=== PATIENT | female | born 1940 | race Caucasian/White ===

== ENCOUNTER 2017-04-16 07:45 | Emergency (ER) | payer OTHER ==
[~2017-04-16] VITALS: Ht 154.9 cm; Wt 65.0 kg
[~2017-04-16 07:45] MED LIST: AMBI10TA PO; ATOR40TA PO; BACT800T5 PO; GABA300C3 PO; GLYB2.5T3 PO; LORTA5 PO; OMEP20TA PO; PLAV75TA PO; POTA-267 PO; VITA400C28 PO
[2017-04-16 07:47] VITALS: BP 118/65; PULSE 82; RESP 16; TEMP 97.7; O2SAT 95
[2017-04-16] MEDS ORDERED: GABA300C5 PO (08:05)
[2017-04-16] MEDS ORDERED: GLIM2TAB PO (08:05)
[2017-04-16] MEDS ORDERED: PLAV75TA29 PO (08:05)
[2017-04-16] MEDS ORDERED: AMBI10TA PO (08:05)
[2017-04-16] MEDS ORDERED: ATOR40TA16 PO (08:05)
[2017-04-16] MEDS ORDERED: PRIL20TA2 (08:05)
--- NOTE | 2017-04-16 08:20 | PD ---
HPI Chief Complaint: Fall Time Seen by Provider: 08:12 Travel History International Travel<30 days: No Contact w/Intl Traveler<30days: No Traveled to known affect area: No History of Present Illness HPI 77-year-old female complains of headache, low back pain, right knee pain. Patient states that she has intermittent headache for the past several months. Patient states the headache aching headache frontal headache. Patient denies any visual change. Patient denies any neck pain. Patient denies any chest pain or shortness of breath. Patient denies abdominal pain. Patient states that she fell this morning and injured her low back and right knee. Patient denies any other injury. Patient states the pain localized to low back area and right knee. Patient has history of chronic low back pain. Patient denies any focal weakness or numbness of extremity. PFSH Past Medical History Hx Anticoagulant Therapy: Yes (PLAVIX) Depression: Yes Heart Rhythm Problems: No Cancer: No Cardiac Catheterization: No Cardiovascular Problems: Yes (SMALL AAA) High Cholesterol: Yes Congestive Heart Failure: No Cerebrovascular Accident: Yes (TIA) Diabetes: Yes (TYPE II) Patient Takes Glucophage: Yes Diminished Hearing: No Diverticulitis: Yes Endocrine: No GERD: Yes Genitourinary: No Hepatitis: No Hiatal Hernia: No Hypertension: Yes Immune Disorder: No Musculoskeletal: No Neurologic: No Psychiatric: No Reproductive: No Respiratory: No Immunizations Current: Yes Myocardial Infarction: No Thyroid Disease: No Tetanus Vaccination: > 5 Years Influenza Vaccination: Yes PNEUMOCCOCAL Vaccine (Year): 2 Menopausal: Yes : 4 Para: 4 Past Surgical History AICD: No Appendectomy: Yes (1986) Body Medical Devices: RODES AND PLATES IN BACK Cholecystectomy: Yes Coronary Artery Bypass Graft: No Eye Surgery: Yes (UMBERTO. 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) Reported Meds & Prescriptions Reported Meds & Active Scripts Active Reported Ambien (Zolpidem Tartrate) 10 Mg Tab 10 Mg PO HS PRN Gabapentin 300 Mg Cap 300 Mg PO DAILY Prilosec (Omeprazole Magnesium) 20 Mg Tab Atorvastatin (Atorvastatin Calcium) 40 Mg Tab 40 Mg PO HS Glimepiride 2 Mg Tab 2 Mg PO DAILY Take with breakfast or first main meal Plavix (Clopidogrel Bisulfate) 75 Mg Tab 75 Mg PO DAILY Review of Systems General / Constitutional: No: Fever Eyes: No: Visual changes HENT: Positive: Headaches Cardiovascular: No: Chest Pain or Discomfort Respiratory: No: Shortness of Breath Gastrointestinal: No: Abdominal Pain Genitourinary: No: Dysuria Musculoskeletal: Positive: Pain Skin: No Rash Neurologic: No: Weakness Psychiatric: No: Depression Endocrine: No: Polydipsia Hematologic/Lymphatic: No: Easy Bruising Physical Exam Narrative GENERAL: Well-nourished, well-developed patient. SKIN: Focused skin assessment warm/dry. HEAD: Normocephalic. EYES: No scleral icterus. No injection or drainage. Pupils 2 mm equal reactive. NECK: Supple, trachea midline. No JVD or lymphadenopathy. CARDIOVASCULAR: Regular rate and rhythm without murmurs, gallops, or rubs. RESPIRATORY: Breath sounds equal bilaterally. No accessory muscle use. GASTROINTESTINAL: Abdomen soft, non-tender, nondistended. MUSCULOSKELETAL: No cyanosis, or edema. Small abrasion prepatellar area of the right knee. Mild to moderate tenderness on palpation prepatellar area of the right knee. Full range of motion the knee. Knee joints stable. No effusion noted. Neurologic exam normal. BACK: Moderate tenderness on palpation lumbar area, without obvious deformity. No CVA tenderness. Negative straight leg raising. Data Data Last Documented VS Vital Signs Date Time Temp Pulse Resp B/P Pulse Ox O2 Delivery O2 Flow Rate FiO2 04/16/17 07:47 97.7 82 16 118/[address] Brain W/O Iv Contrast(Rout) (04/16/17 08:17) Ct Lumb Spine W/O Contrast (04/16/17 08:17) Knee, Ltd (1 Or 2vws) (04/16/17 08:17) MDM Medical Decision Making Medical Screen Exam Complete: Yes Emergency Medical Condition: Yes Interpretation(s) Last Impressions Knee X-Ray 04/16/17816 Signed Impressions: Service Date/Time: Sunday, April 16, 2017 08:43 - CONCLUSION: No acute abnormality is identified. Paulino Souza MD Head CT 04/16/17816 Signed Impressions: Service Date/Time: Sunday, April 16, 2017 08:40 - CONCLUSION: No acute abnormality is identified. Paulino Souza MD Differential Diagnosis Differential diagnosis including contusion, sprain, fracture, dislocation. Narrative Course 77-year-old female with right knee to low back pain. Status post fall this morning. History of headache. TD booster given. Diagnosis Primary Impression: Contusion of right knee Qualified Code: S80.01XA - Contusion of right knee, initial encounter Additional Impression: Cephalgia Qualified Code: R51 - Acute nonintractable headache, unspecified headache type Patient Instructions: General Instructions Additional Instructions: Take medication as directed. Follow-up with personal physician and orthopedist if persistent problem. Return if worse. Polysporin ointment with Band-Aid daily. TD booster given today. Med/Other Pt SpecificInfo: Prescription(s) given Scripts Hydrocodone-Acetaminophen ([place])5-325 mg Tab1 Tab PO Q6H PRN (PAIN) #20 TAB Prov:Ramesh Edmonds MD 04/16/17 Disposition: 01 DISCHARGE HOME Condition: Stable Ramesh Edmonds MD Apr 16, 2017 08:20
--- NOTE | 2017-04-16 09:18 | RADRPT ---
EXAM DATE/TIME: 04/16/2017 08:40 [facility] COMPARISON: No previous studies available for comparison. INDICATIONS : Syncope with fall. RADIATION DOSE: 63.50 CTDIvol (mGy) MEDICAL HISTORY : Hypercholesterolemia. Cardiovascular disease TIA SURGICAL HISTORY : Hysterectomy. Cholecystectomy.Lumbar ENCOUNTER: Initial ACUITY: 1 day PAIN SCALE: 0/10 LOCATION: cranial TECHNIQUE: Multiple contiguous axial images were obtained of the head. Using automated exposure control and adj ustment of the mA and/or kV according to patient size, radiation dose was kept as low as reasonably a chievable to obtain optimal diagnostic quality images. DICOM format image data is available electro nically for review and comparison. FINDINGS: CEREBRUM: The ventricles are normal. No evidence of midline shift, mass lesion, hemorrhage or acute infarction . No extra-axial fluid collections are seen. POSTERIOR FOSSA: The cerebellum and brainstem demonstrate no acute finding. The 4th ventricle is midline. The cerebe llopontine angle is unremarkable. EXTRACRANIAL: Visualized sinuses are clear. SKULL: The calvaria is intact. No evidence of skull fracture. CONCLUSION: No acute abnormality is identified. Paulino Souza MD on April 16, 2017 at 9:14 Board Certified Radiologist. This report was verified electronically.
--- NOTE | 2017-04-16 09:22 | RADRPT ---
EXAM DATE/TIME: 04/16/2017 08:43 [facility] COMPARISON: No previous studies available for comparison. INDICATIONS : Right knee abrasion status post fall. MEDICAL HISTORY : Hypertension. Gastroesophageal reflux disease. Diverticulitis. Diabetes. SURGICAL HISTORY : Appendectomy. Cholecystectomy. Hysterectomy. Bowel resection. Rods, lumbar region. ENCOUNTER: Initial ACUITY: 1 day PAIN SCORE: 4/10 LOCATION: Right knee. FINDINGS: 2 views of the right knee demonstrate no fracture or dislocation. No joint effusion is present. There is no significant arthropathy and mineralization is within normal limits. No soft tissue abnormality or radiopaque foreign body is identified. CONCLUSION: No acute abnormality is identified. Paulino Souza MD on April 16, 2017 at 9:20 Board Certified Radiologist. This report was verified electronically.
--- NOTE | 2017-04-16 09:28 | RADRPT ---
EXAM DATE/TIME: 04/16/2017 08:43 [facility] COMPARISON: No previous studies available for comparison. INDICATIONS : Back pain, fall. RADIATION DOSE: 40.01 CTDIvol (mGy) MEDICAL HISTORY : Cardiovascular disease. Hypercholesterolemia. TIA SURGICAL HISTORY : Cholecystectomy. Hysterectomy.Lumbar ENCOUNTER: Initial ACUITY: 1 day PAIN SCALE: 7/10 LOCATION: Bilateral Back. TECHNIQUE: Volumetric scanning of the lumbar spine was performed. Multiplanar reconstructions in the sagittal, coronal and oblique axial planes were performed. Using automated exposure control and adjustment of the mA and/or kV according to patient size, radiation dose was kept as low as reasonably achievable t o obtain optimal diagnostic quality images. DICOM format image data is available electronically for review and comparison. FINDINGS: VERTEBRAE: Normal vertebral body height. No fracture or compression deformity is identified. Spinal hardware is present posteriorly at L3-L5 consisting of bilateral pedicular screws. Hardware causes beam hardening artifact. ALIGNMENT: There is minimal retrolisthesis of L1 on L2 and L2 on L3. T12-L1: There is a mild diffuse disc bulge. No spinal canal stenosis or neural foraminal narrowing is identif ied. Decreased disc height is present. L1-L2: There is decreased disc height with vacuum disc phenomenon and there is a diffuse disc bulge. No spin al canal stenosis is appreciated and no significant neural foraminal narrowing is seen. L2-L3: There is decreased disc height with a diffuse disc bulge and facet and ligamentum flavum hypertrophy. These changes cause at least mild spinal canal stenosis. There is mild left neural foraminal narrowi ng. L3-L4: The there is decreased disc height with vacuum disc phenomenon. A diffuse disc bulge is present. Spin al canal is partially obscured secondary to beam hardening artifact. There is facet hypertrophy. Mild left neural foraminal narrowing is present. L4-L5: Bilateral pedicular screws are present and cause severe beam hardening artifact obscuring the spinal canal. No definite neural foraminal narrowing is seen. There is fusion of the facet joints. L5-S1: There are bilateral pedicular screws causing beam hardening artifact and obscuring the spinal canal. Neural foramina are also not well-visualized. The facet joints appear fused. Visualized surrounding structures demonstrates severe atherosclerotic disease with ectatic abdominal aorta measuring up to 3 cm. CONCLUSION: 1. Degenerative disc disease at multiple levels with mild spinal canal stenosis at L2-L3. Please see above for detailed description of each level. No fracture is identified and no acute lumbar spine abn ormality is seen. 2. Severe atherosclerotic disease with mildly aneurysmal abdominal aorta measuring up to 3 cm. Paulino Souza MD on April 16, 2017 at 9:21 Board Certified Radiologist. This report was verified electronically.
[2017-04-16] MEDS ORDERED: NORC5TAB PO (09:38)
[2017-04-16] MEDS ORDERED: TETANUS/DIPHTHERIA TOXOID ADULT 0.5 ML VIAL IM ONE (09:45)
== END 2017-04-16 10:06 | disposition home or self-care (01) ==
LOC: PHED 07:45
DX: S80.01XA Contusion of right knee, initial encounter (principal); R51 Headache; M54.5 Low back pain; W19.XXXA Unspecified fall, initial encounter; Z23 Encounter for immunization
CPT/HCPCS: 70450; 72131; 73560; 90471; 90714

== ENCOUNTER 2017-05-20 07:44 | Emergency (ER) | payer OTHER ==
[~2017-05-20] VITALS: Ht 154.9 cm; Wt 70.0 kg
[~2017-05-20 07:44] MED LIST changes: -ATOR40TA PO; +ATOR40TA16 PO; -BACT800T5 PO; -GABA300C3 PO; +GABA300C5 PO; +GLIM2TAB PO; -GLYB2.5T3 PO; -LORTA5 PO; +NORC5TAB PO; -OMEP20TA PO; -PLAV75TA PO; +PLAV75TA29 PO; -POTA-267 PO; +PRIL20TA2 PO; -VITA400C28 PO
[2017-05-20 07:50] VITALS: BP 110/62; PULSE 72; RESP 16; TEMP 98.2; O2SAT 97
[2017-05-20] MEDS ORDERED: SODIUM CHLOR 0.9% 1000 ML INJ 1,000 ML IV SCH (08:06)
[2017-05-20 08:15] VITALS: RESP 16; O2SAT 98
[2017-05-20] MEDS ORDERED: ONDANSETRON HCL 4 MG/2 ML VIAL IVP ONE (08:15)
[2017-05-20] MEDS ORDERED: KETOROLAC TROMETHAMINE 30 MG/ML (IVP) VIAL IVP ONE (08:15)
[2017-05-20] MEDS ORDERED: SODIUM CHLORIDE 0.9% FLUSH 10 ML FLUSH IV FLUSH PRN (08:15)
[2017-05-20] MEDS ORDERED: MORPHINE SULFATE 4 MG/ML INJ IV PUSH ONE (08:15)
--- NOTE | 2017-05-20 08:16 | PD ---
HPI Chief Complaint: Back/ Neck Pain or Injury Time Seen by Provider: 08:05 Travel History International Travel<30 days: No Contact w/Intl Traveler<30days: No Traveled to known affect area: No History of Present Illness HPI The patient is a 77-year-old female who presents emergency department for back pain. The patient states she developed back pain yesterday after getting out of bed. The back pain is located lower aspect of her back, radiates down the posterior aspect of her left leg and stops at the lateral aspect of the left knee. She denies weakness or numbness to left lower extremity. The pain is worse with movement, but is still present at rest. The patient does have a history of previous back surgery that was performed in [place]. The patient does complain of mild dysuria, but denies any hematuria, frequency, or urgency. She does note slightly decreased urinary output. The patient does have a remote history of UTI, but denies any history of previous nephrolithiasis. She denies any nausea, vomiting, diarrhea, constipation, or anterior abdominal pain. The patient has a known history of AAA which is being monitored. The patient's primary physician is Dr. Greg Florez. [facility] Past Medical History Hx Anticoagulant Therapy: Yes (PLAVIX) Depression: Yes Heart Rhythm Problems: No Cancer: No Cardiac Catheterization: No Cardiovascular Problems: Yes (SMALL AAA) High Cholesterol: Yes Congestive Heart Failure: No Cerebrovascular Accident: Yes (TIA) Diabetes: Yes (TYPE II) Diminished Hearing: No Diverticulitis: Yes Endocrine: No GERD: Yes Genitourinary: No Hepatitis: No Hiatal Hernia: No Hypertension: Yes Immune Disorder: No Musculoskeletal: No Neurologic: No Psychiatric: No Reproductive: No Respiratory: No Immunizations Current: Yes Myocardial Infarction: No Thyroid Disease: No PNEUMOCCOCAL Vaccine (Year): 2 Menopausal: Yes : 4 Para: 4 Past Surgical History AICD: No Appendectomy: Yes (1986) Body Medical Devices: RODES AND PLATES IN BACK Cholecystectomy: Yes Coronary Artery Bypass Graft: No Eye Surgery: Yes (UMBERTO. 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) Reported Meds & Prescriptions Reported Meds & Active Scripts Active Reported Ambien (Zolpidem Tartrate) 10 Mg Tab 10 Mg PO HS PRN Gabapentin 300 Mg Cap 300 Mg PO DAILY Prilosec (Omeprazole Magnesium) 20 Mg Tab 20 Mg PO DAILY Atorvastatin (Atorvastatin Calcium) 40 Mg Tab 40 Mg PO HS Glimepiride 2 Mg Tab 2 Mg PO DAILY Take with breakfast or first main meal Plavix (Clopidogrel Bisulfate) 75 Mg Tab 75 Mg PO DAILY Review of Systems Except as stated in HPI: all other systems reviewed are Neg General / Constitutional: No: Fever Cardiovascular: No: Chest Pain or Discomfort Respiratory: No: Shortness of Breath Gastrointestinal: No: Nausea, Vomiting, Diarrhea, Abdominal Pain, Constipation Genitourinary: Positive: Dysuria, No: Urgency, Frequency, Hematuria, Flank Pain Musculoskeletal: Positive: Pain (back pain as noted in the history present illness), No: Weakness Neurologic: No: Weakness, Paresthesia, Sensory Disturbance Physical Exam Narrative GENERAL: Awake, alert, very pleasant 77-year-old female who appears her stated age and is in no acute respiratory distress. The patient does appear mild discomfort. SKIN: Focused skin assessment warm/dry. HEAD: Atraumatic. Normocephalic. EYES: No injection or drainage. ENT: No nasal bleeding or discharge. Mucous membranes pink and moist. NECK: Trachea midline. No JVD. CARDIOVASCULAR: Regular rate and rhythm. No murmur appreciated. RESPIRATORY: No accessory muscle use. Clear to auscultation. Breath sounds equal bilaterally. GASTROINTESTINAL: Abdomen soft, non-tender, nondistended. No rebound tenderness. No suprapubic tenderness. Back: Well-healed midline scar. Mild tenderness left sacroiliac. MUSCULOSKELETAL: No obvious deformities. No clubbing. No cyanosis. No edema. Positive dorsalis pulses bilateral. Flexion of the great toe and plantar flexion on the left are 5 out of 5. Extension of the left knee is 4+/5 and flexion of the left knee is 4+/5. Negative straight leg raise on the left. NEUROLOGICAL: Awake and alert. No obvious cranial nerve deficits. Motor grossly within normal limits. Normal speech. Sensation is intact to the medial , lateral, dorsal aspect of the left foot. PSYCHIATRIC: Appropriate mood and affect; insight and judgment normal. Data Data Last Documented VS Vital Signs Date Time Temp Pulse Resp B/P (MAP) Pulse Ox O2 Delivery O2 Flow Rate FiO2 05/20/17 09:12 16 05/20/17 09:11 62 125/57 (79) 96 Room Air 05/20/17 07:50 98.2 Orders Orders Basic Metabolic Panel (Bmp) (05/20/17 08:06) Complete Blood Count With Diff (05/20/17 08:06) Urinalysis - C+S If Indicated (05/20/17 08:06) Ct Abd/Pel W/O Iv Contrast (05/20/17 08:06) Iv Access Insert/Monitor (05/20/17 08:06) Ecg Monitoring (05/20/17 08:06) Oximetry (05/20/17 08:06) Morphine Inj (Morphine Inj) (05/20/17 08:15) Ondansetron Inj (Zofran Inj) (05/20/17 08:15) Sodium Chlor 0.9% 1000 Ml Inj (Ns 1000 M (05/20/17 08:06) Sodium Chloride 0.9% Flush (Ns Flush) (05/20/17 08:15) Ketorolac Inj (Toradol Inj) (05/20/17 08:15) Famotidine Inj (Pepcid Inj) (05/20/17 09:45) Al-Mag Hy-Si 40-40-4 Mg/Ml Liq (Mag-Al P (05/20/17 09:45) Lidocaine 2% Viscous (Xylocaine 2% Visco (05/20/17 09:45) Urine Culture (05/20/17 08:43) Labs Laboratory Tests Test 05/20/17 08:43 05/20/17 09:05 Urine Collection Type CATH Urine Color STRAW Urine Turbidity CLEAR Urine pH 5.5 Urine Specific [place] 1.007 Urine Protein NEG mg/dL Urine Glucose (UA) NEG mg/dL Urine Ketones NEG mg/dL Urine Occult Blood TRACE Urine Nitrite POS Urine Bilirubin NEG Urine Leukocyte Esterase SMALL Urine WBC 0-2 /hpf Urine WBC Clumps RARE Urine Bacteria MOD /hpf Microscopic Urinalysis Comment CULTURE INDICATED White Blood Count 4.8 TH/MM3 Red Blood Count 4.54 MIL/MM3 Hemoglobin 12.8 GM/DL Hematocrit 39.0 % Mean Corpuscular Volume 85.9 FL Mean Corpuscular Hemoglobin 28.2 PG Mean Corpuscular Hemoglobin Concent 32.8 % Red Cell Distribution Width 13.2 % Platelet Count 258 TH/MM3 Mean Platelet Volume 7.1 FL Neutrophils (%) (Auto) 63.9 % Lymphocytes (%) (Auto) 25.0 % Monocytes (%) (Auto) 6.6 % Eosinophils (%) (Auto) 3.8 % Basophils (%) (Auto) 0.7 % Neutrophils # (Auto) 3.1 TH/MM3 Lymphocytes # (Auto) 1.2 TH/MM3 Monocytes # (Auto) 0.3 TH/MM3 Eosinophils # (Auto) 0.2 TH/MM3 Basophils # (Auto) 0.0 TH/MM3 CBC Comment DIFF FINAL Differential Comment Blood Urea Nitrogen 11 MG/DL Creatinine 0.78 MG/DL Random Glucose 147 MG/DL Calcium Level 8.4 MG/DL Sodium Level 141 MEQ/L Potassium Level 4.1 MEQ/L Chloride Level 107 MEQ/L Carbon Dioxide Level 26.7 MEQ/L Anion Gap 7 MEQ/L Estimat Glomerular Filtration Rate 72 ML/MIN [facility] Medical Decision Making Medical Screen Exam Complete: Yes Emergency Medical Condition: Yes Medical Record Reviewed: Yes Interpretation(s) Last Impressions Abdomen/Pelvis CT 05/20/17805 Signed Impressions: Service Date/Time: Saturday, May 20, 2017 08:50 - CONCLUSION: Chronic changes in the patient's spine, colonic diverticuli and otherwise unremarkable. Brittany Rucker MD Laboratory Tests Test 05/20/17 08:43 05/20/17 09:05 Urine Collection Type CATH Urine Color STRAW Urine Turbidity CLEAR Urine pH 5.5 Urine Specific [place] 1.007 Urine Protein NEG mg/dL Urine Glucose (UA) NEG mg/dL Urine Ketones NEG mg/dL Urine Occult Blood TRACE Urine Nitrite POS Urine Bilirubin NEG Urine Leukocyte Esterase SMALL Urine WBC 0-2 /hpf Urine WBC Clumps RARE Urine Bacteria MOD /hpf Microscopic Urinalysis Comment CULTURE INDICATED White Blood Count 4.8 TH/MM3 Red Blood Count 4.54 MIL/MM3 Hemoglobin 12.8 GM/DL Hematocrit 39.0 % Mean Corpuscular Volume 85.9 FL Mean Corpuscular Hemoglobin 28.2 PG Mean Corpuscular Hemoglobin Concent 32.8 % Red Cell Distribution Width 13.2 % Platelet Count 258 TH/MM3 Mean Platelet Volume 7.1 FL Neutrophils (%) (Auto) 63.9 % Lymphocytes (%) (Auto) 25.0 % Monocytes (%) (Auto) 6.6 % Eosinophils (%) (Auto) 3.8 % Basophils (%) (Auto) 0.7 % Neutrophils # (Auto) 3.1 TH/MM3 Lymphocytes # (Auto) 1.2 TH/MM3 Monocytes # (Auto) 0.3 TH/MM3 Eosinophils # (Auto) 0.2 TH/MM3 Basophils # (Auto) 0.0 TH/MM3 CBC Comment DIFF FINAL Differential Comment Blood Urea Nitrogen 11 MG/DL Creatinine 0.78 MG/DL Random Glucose 147 MG/DL Calcium Level 8.4 MG/DL Sodium Level 141 MEQ/L Potassium Level 4.1 MEQ/L Chloride Level 107 MEQ/L Carbon Dioxide Level 26.7 MEQ/L Anion Gap 7 MEQ/L Estimat Glomerular Filtration Rate 72 ML/MIN Differential Diagnosis Differential diagnoses includes sciatica, back pain with radiculopathy, SI joint pain, spinal stenosis, AAA, nephrolithiasis, UTI. Narrative Course IV was established, labs are drawn and sent, and the patient was placed on cardiac telemetry monitoring and continuous pulse oximetry monitoring. UA was sent to lab. The patient was vegetable handler morphine, Toradol, Zofran, and IV fluids. Noncontrast CT of the abdomen and pelvis was ordered. After administration of morphine the patient complained of epigastric discomfort and indigestion. Therefore, the patient was ordered Pepcid, Maalox, and viscous lidocaine. However, she declined the Maalox and viscous lidocaine. The patient 's labs are noted, CBC was unremarkable. Kidney function is within normal limits. UA reveals leukocyte esterase, nitrates, bacteria, therefore, patient will be treated with Bactrim until culture results are resulted. The patient was reevaluated at 9:45 PM, her symptoms have improved. The patient will be treated with anti-inflammatories, muscle relaxers, pain medications, and Bactrim. She is advised return if symptoms worsen or progress. Diagnosis Primary Impression: Back pain with left-sided radiculopathy Additional Impression: UTI (urinary tract infection) Qualified Codes: N39.0 - Urinary tract infection, site not specified Patient Instructions: General Instructions Additional Instructions: Medications as directed. Follow-up with your primary physician. Please provide the patient a copy of her labs at discharge. Return if symptoms worsen or progress. Med/Other Pt SpecificInfo: Prescription(s) given Scripts Sulfamethoxazole-Trimethoprim (Bactrim DS) 800-160 Mg Tab 1 TAB PO BID for Infection, #6 TAB 0 Refills Prov: Sriram Peter MD 05/20/17 Hydrocodone-Acetaminophen ([place]) 5-325 mg Tab 1 TAB PO Q6H Y for PAIN, #15 TAB 0 Refills Prov: Sriram Peter MD 05/20/17 Cyclobenzaprine (Flexeril) 10 Mg Tab 10 MG PO TID for Muscle Spasm, #30 TAB 0 Refills Prov: Sriram Peter MD 05/20/17 Ibuprofen (Ibuprofen) 400 Mg Tab 400 MG PO Q6H Y for PAIN SCALE 1 TO 10, #20 TAB 0 Refills Prov: Sriram Peter MD 05/20/17 Disposition: 01 DISCHARGE HOME Condition: Stable Sriram Peter MD May 20, 2017 08:16
[2017-05-20 09:09] LABS: AUTOMATED NEUTROPHIL # 3.1 TH/MM3 (1.8-7.7); BASOPHIL % 0.7 % (0.0-2.0); EOSINOPHIL # 0.2 TH/MM3 (0-0.4); EOSINOPHIL % 3.8 % (0.0-4.0); HEMO FLAGS DIFF FINAL; LYMPHOCYTE # 1.2 TH/MM3 (1.0-4.8); MEAN CELL VOLUME 85.9 FL (80.0-100.0); MEAN CORPUSCULAR HEMOGLOBIN 28.2 PG (27.0-34.0); MEAN CORPUSCULAR HGB CONC 32.8 % (32.0-36.0); MONO % 6.6 % (0.0-8.0); NEUT % 63.9 % (16.0-70.0); PLATELET COUNT 258 TH/MM3 (150-450); RED BLOOD COUNT 4.54 MIL/MM3 (4.00-5.30); RED CELL DISTRIBUTION WIDTH 13.2 % (11.6-17.2); WHITE BLOOD COUNT 4.8 TH/MM3 (4.0-11.0)
[2017-05-20 09:11] VITALS: BP 125/57; PULSE 62; RESP 16; O2SAT 96
[2017-05-20 09:12] VITALS: RESP 16
--- NOTE | 2017-05-20 09:31 | RADRPT ---
EXAM DATE/TIME: 05/20/2017 08:50 [facility] COMPARISON: CT ABDOMEN & PELVIS W/O CONTRAST, April 25, 2016, 20:49. INDICATIONS : Left low back pain. ORAL CONTRAST: No oral contrast ingested. RADIATION DOSE: 13.95 CTDIvol (mGy) MEDICAL HISTORY : Diabetes mellitus type 2. Diverticulitis. SURGICAL HISTORY : Appendectomy. Cholecystectomy.Hysterectomy.Lumbar fusion. ENCOUNTER: Initial ACUITY: 3 days PAIN SCALE: 8/10 LOCATION: Left low back TECHNIQUE: Volumetric scanning of the abdomen and pelvis was performed. Using automated exposure control and ad justment of the mA and/or kV according to patient size, radiation dose was kept as low as reasonably achievable to obtain optimal diagnostic quality images. DICOM format image data is available electro nically for review and comparison. FINDINGS: CT Abdomen: The liver, spleen, pancreas, kidneys, adrenals are unremarkable. There is no evidence for any stones in the kidneys or the course of the ureters on either side. There is no hydronephrosis.Th ere is no evidence for any appreciable pathological adenopathy, free fluid, or bowel obstruction. Ch ronic vascular calcifications are present involving the aorta, iliac arteries without any significant stenosis or aneurysmal dilatations for technique. CT pelvis: There is no evidence for mass, abscess formation, or any significant adenopathy within the pelvis. There are postsurgical changes in the lower lumbosacral spine. There are diverticuli in the colon without signs of diverticulitis. CONCLUSION: Chronic changes in the patient's spine, colonic diverticuli and otherwise unremarkabl e. K. Dragan Rucker MD on May 20, 2017 at 9:26 Board Certified Radiologist. This report was verified electronically.
[2017-05-20 09:38] LABS: GLUCOSE,URINE NEG (NEG); KETONE, URINE NEG (NEG); NITRITE,URINE POS (NEG); PH, URINE 5.5 (5.0-8.5)
[2017-05-20] MEDS ORDERED: ALUMINUM/MAGNESIUM/SIMETH 30 ML CUP PO ONE (09:45)
[2017-05-20] MEDS ORDERED: LIDOCAINE VISCOUS 2% SOLN 15 ML UDC PO ONE (09:45)
[2017-05-20] MEDS ORDERED: FAMOTIDINE 20 MG/2 ML VIAL IV PUSH ONE (09:45)
[2017-05-20 09:48] LABS: BICARBONATE 26.7 MEQ/L (21.0-32.0)
[2017-05-20 09:51] LABS: BLOOD, URINE TRACE (NEG)
[2017-05-20 09:52] LABS: METHOD OF COLLECTION CATH; URINE COLOR STRAW (YELLW/STRAW); WBC, URINE 0-2 /hpf (0-5)
[2017-05-20 09:53] LABS: BACTERIA, URINE MOD /hpf; COMMENT (UR) CULTURE INDICATED; CULTURE IF INDICATED CULTURE INDICATED
[2017-05-20 09:54] LABS: POTASSIUM 4.1 MEQ/L (3.5-5.1)
[2017-05-20] MEDS ORDERED: BACT800T5 PO (10:01)
[2017-05-20] MEDS ORDERED: NORC5TAB PO (10:01)
[2017-05-20] MEDS ORDERED: IBUP400T20 PO (10:01)
[2017-05-20] MEDS ORDERED: CYCL1TAB29 PO (10:01)
[2017-05-20 10:37] VITALS: BP 138/71
== END 2017-05-20 11:09 | disposition home or self-care (01) ==
LOC: PHED 07:44
DX: M54.5 Low back pain (principal); M54.10 Radiculopathy, site unspecified; N39.0 Urinary tract infection, site not specified; B96.20 Unspecified Escherichia coli [E. coli] as the cause of diseases classified elsewhere; E11.9 Type 2 diabetes mellitus without complications; Z79.84 Long term (current) use of oral hypoglycemic drugs
CPT/HCPCS: 74176; 80048; 81001; 85025; 87077; 87086; 87186; 96361; 96374; 96375; 99285; J1885; J2270; J2405; J7030

== ENCOUNTER 2017-06-08 07:34 | Observation (INO) | payer OTHER ==
[~2017-06-08] VITALS: Ht 165.1 cm; Wt 65.0 kg
[2017-06-08] VITALS (10 sets, daily range): BP systolic 124–179; BP diastolic 60–91; PULSE 79–88; RESP 15–18; TEMP 97.5–97.8; O2SAT 95–99
[~2017-06-08 07:34] MED LIST changes: +BACT800T5 PO; +CYCL1TAB29 PO; +IBUP400T20 PO
[2017-06-08] MEDS ORDERED: SODIUM CHLORIDE 0.9% FLUSH 5 ML FLUSH IV FLUSH PRN ×2 (07:45→09:45)
--- NOTE | 2017-06-08 07:50 | PD ---
HPI Chief Complaint: General Weakness Time Seen by Provider: 07:45 Travel History International Travel<30 days: No Contact w/Intl Traveler<30days: No Traveled to known affect area: No History of Present Illness HPI 77-year-old female with history of diabetes, previous TIA, presents to the ER today brought in by EMS after her daughter called, states that the patient is more weak than usual, disoriented. Apparently, last night had been found half way out of bed, was helped back into bed by daughter, and this morning appears disoriented. On evaluation, patient is disoriented, but states she has left hip pain. However, it is unclear whether she is a reliable historian. She denies falling. Modifying Factors: None Associated Signs & Symptoms: Altered mental status Risk Factors: Elderly, TIA history PFSH Past Medical History Hx Anticoagulant Therapy: Yes (PLAVIX) Arthritis: Yes Depression: Yes Heart Rhythm Problems: No Cancer: No Cardiac Catheterization: No Cardiovascular Problems: Yes (SMALL AAA) High Cholesterol: Yes Congestive Heart Failure: No Cerebrovascular Accident: Yes (TIA) Diabetes: Yes (TYPE II) Diminished Hearing: No Diverticulitis: Yes Endocrine: No GERD: Yes Genitourinary: No Hepatitis: No Hiatal Hernia: No Hypertension: Yes Immune Disorder: No Musculoskeletal: No Neurologic: No Psychiatric: No Reproductive: No Respiratory: No Immunizations Current: Yes Myocardial Infarction: No Thyroid Disease: No PNEUMOCCOCAL Vaccine (Year): 2 Menopausal: Yes : 4 Para: 4 Past Surgical History AICD: No Appendectomy: Yes (1986) Body Medical Devices: RODES AND PLATES IN BACK Cholecystectomy: Yes Coronary Artery Bypass Graft: No Eye Surgery: Yes (UMBERTO. 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) Reported Meds & Prescriptions Reported Meds & Active Scripts Active Reported Potassium Chloride ER (Potassium Chloride) 10 Meq Cap 10 Meq PO DAILY Simvastatin 80 Mg Tab 80 Mg PO DAILY Glimepiride 1 Mg Tab 1 Mg PO DAILY Take with breakfast or first main meal Gabapentin 300 Mg Cap 300 Mg PO BID Ambien (Zolpidem Tartrate) 10 Mg Tab 10 Mg PO HS PRN Prilosec (Omeprazole Magnesium) 20 Mg Tab 20 Mg PO DAILY Plavix (Clopidogrel Bisulfate) 75 Mg Tab 75 Mg PO DAILY Review of Systems ROS Limitations: Altered Mental Status Physical Exam Narrative GENERAL: Well-developed elderly white female patient who appears in mild distress, awake, slurred speech, disoriented. SKIN: Focused skin assessment warm/dry. HEAD: Atraumatic. Normocephalic. EYES: Pupils equal and round. No scleral icterus. No injection or drainage. ENT: No nasal bleeding or discharge. Mucous membranes pink and moist. NECK: Trachea midline. No JVD. CARDIOVASCULAR: Regular rate and rhythm. No murmur appreciated. RESPIRATORY: No accessory muscle use. Clear to auscultation. Breath sounds equal bilaterally. GASTROINTESTINAL: Abdomen soft, non-tender, nondistended. Hepatic and splenic margins not palpable. Pelvis: Stable, mildly tender palpation in the left hip. MUSCULOSKELETAL: No obvious deformities. No clubbing. No cyanosis. No edema. NEUROLOGICAL: Awake and lethargic. No obvious cranial nerve deficits. Motor grossly within normal limits. Slurred speech. PSYCHIATRIC: Disoriented and lethargic; insight and judgment poor. Data Data Last Documented VS Vital Signs Date Time Temp Pulse Resp B/P (MAP) Pulse Ox O2 Delivery O2 Flow Rate FiO2 06/08/17 07:51 (86) Room Air 06/08/17 07:48 97.5 82 15 99 Orders Orders Electrocardiogram (06/08/17 07:45) Complete Blood Count With Diff (06/08/17 07:45) Comprehensive Metabolic Panel (06/08/17 07:45) Prothrombin Time / Inr (Pt) (06/08/17 07:45) Act Partial Throm Time (Ptt) (06/08/17 07:45) Troponin I (06/08/17 07:45) Thyroid Stimulating Hormone (06/08/17 07:45) Urinalysis - C+S If Indicated (06/08/17 07:45) Lactic Acid Sepsis Protocol (06/08/17 07:45) Blood Culture (06/08/17 07:45) Chest, Single Ap (06/08/17 07:45) Ct Brain W/O Iv Contrast(Rout) (06/08/17 07:45) Blood Glucose (06/08/17 07:45) Ecg Monitoring (06/08/17 07:45) Iv Access Insert/Monitor (06/08/17 07:45) Cath For Specimen (06/08/17 07:45) Oximetry (06/08/17 07:45) Sodium Chloride 0.9% Flush (Ns Flush) (06/08/17 07:45) Alcohol (Ethanol) (06/08/17 07:45) Hip, Uni(Ap&Lat) W Ap Pelvis (06/08/17 07:50) Urinary Catheter Insert/Apply (06/08/17 08:16) Urine Culture (06/08/17 08:15) Aspirin (Aspirin) (06/08/17 09:15) Piperacil-Tazo 4.5 Gm Premix (Zosyn 4.5 (06/08/17 09:10) Sodium Chlor 0.9% 1000 Ml Inj (Ns 1000 M (06/08/17 09:15) Labs Laboratory Tests Test 06/08/17 07:10 06/08/17 08:15 White Blood Count 4.3 TH/MM3 Red Blood Count 4.48 MIL/MM3 Hemoglobin 12.7 GM/DL Hematocrit 38.5 % Mean Corpuscular Volume 85.9 FL Mean Corpuscular Hemoglobin 28.4 PG Mean Corpuscular Hemoglobin Concent 33.1 % Red Cell Distribution Width 14.0 % Platelet Count 250 TH/MM3 Mean Platelet Volume 6.9 FL Neutrophils (%) (Auto) 61.8 % Lymphocytes (%) (Auto) 25.4 % Monocytes (%) (Auto) 8.6 % Eosinophils (%) (Auto) 3.4 % Basophils (%) (Auto) 0.8 % Neutrophils # (Auto) 2.7 TH/MM3 Lymphocytes # (Auto) 1.1 TH/MM3 Monocytes # (Auto) 0.4 TH/MM3 Eosinophils # (Auto) 0.1 TH/MM3 Basophils # (Auto) 0.0 TH/MM3 CBC Comment DIFF FINAL Differential Comment Prothrombin Time 10.3 SEC Prothromb Time International Ratio 0.9 RATIO Activated Partial Thromboplast Time 24.5 SEC Blood Urea Nitrogen 16 MG/DL Creatinine 0.74 MG/DL Random Glucose 124 MG/DL Total Protein 6.9 GM/DL Albumin 4.0 GM/DL Calcium Level 8.5 MG/DL Alkaline Phosphatase 91 U/L Aspartate Amino Transf (AST/SGOT) 12 U/L Alanine Aminotransferase (ALT/SGPT) 18 U/L Total Bilirubin 0.4 MG/DL Sodium Level 138 MEQ/L Potassium Level 4.2 MEQ/L Chloride Level 104 MEQ/L Carbon Dioxide Level 27.1 MEQ/L Anion Gap 7 MEQ/L Estimat Glomerular Filtration Rate 77 ML/MIN Lactic Acid Level 1.5 mmol/L Troponin I LESS THAN 0.02 NG/ML Thyroid Stimulating Hormone 3rd Gen 2.690 uIU/ML Ethyl Alcohol Level LESS THAN 3 MG/DL Urine Color YELLOW Urine Turbidity CLEAR Urine pH 5.0 Urine Specific Sutton 1.017 Urine Protein NEG mg/dL Urine Glucose (UA) NEG mg/dL Urine Ketones NEG mg/dL Urine Occult Blood NEG Urine Nitrite POS Urine Bilirubin NEG Urine Urobilinogen LESS THAN 2.0 MG/DL Urine Leukocyte Esterase MOD Urine RBC 1 /hpf Urine WBC 7 /hpf Urine WBC Clumps RARE Urine Squamous Epithelial Cells <1 /hpf Urine Bacteria MANY /hpf Microscopic Urinalysis Comment CATH-CULTURE IND MDM Medical Decision Making Medical Screen Exam Complete: Yes Emergency Medical Condition: Yes Medical Record Reviewed: Yes Interpretation(s) Laboratory Tests Test 06/08/17 07:10 06/08/17 08:15 Mean Platelet Volume 6.9 FL (7.0-11.0) Monocytes (%) (Auto) 8.6 % (0.0-8.0) Random Glucose 124 MG/DL (74-106) Aspartate Amino Transf (AST/SGOT) 12 U/L (15-37) Estimat Glomerular Filtration Rate 77 ML/MIN (>89) Troponin I LESS THAN 0.02 NG/ML Urine Nitrite POS (NEG) Urine Leukocyte Esterase MOD (NEG) Urine WBC 7 /hpf (0-5) Urine WBC Clumps RARE (NONE) Urine Bacteria MANY /hpf (NONE) Last 24 hours Impressions Hip and Pelvis X-Ray 06/08/17 0750 Signed Impressions: Service Date/Time: Thursday, June 08, 2017 08:34 - CONCLUSION: 1. No acute fracture or dislocation. Saeed Ness MD Head CT 06/08/1745 Signed Impressions: Service Date/Time: Thursday, June 08, 2017 08:31 - CONCLUSION: 1. No acute intracranial abnormality. Saeed Ness MD Chest X-Ray 06/08/1745 Signed Impressions: Service Date/Time: Thursday, June 08, 2017 07:59 - CONCLUSION: 1. Mild left basilar airspace disease, likely atelectasis. Saeed Ness MD Differential Diagnosis Altered mental status: Metabolic issues versus medication side effects versus TIA versus other acute intracranial processes versus sepsis Narrative Course CAT scan did not show any signs of acute processes. Lab work shows a UTI which may be causing some of her symptoms. Family is concerned because they state that they think Flexeril and some of the pain medications given to her may be causing symptoms to be worse. At this point, aspirin and IV antibiotics were given after cultures were done. My plan would be to admit the patient as an observation for further treatment. Case was discussed with Dr. Farrell for admission. Diagnosis Primary Impression: UTI (urinary tract infection) Additional Impression: Altered mental status Admitting Information Admitting Physician Requests: Admit Renata Bedolla MD Jun 08, 2017 07:50
[2017-06-08 08:28] LABS: AUTOMATED NEUTROPHIL # 2.7 TH/MM3 (1.8-7.7); BASOPHIL % 0.8 % (0.0-2.0); EOSINOPHIL # 0.1 TH/MM3 (0-0.4); EOSINOPHIL % 3.4 % (0.0-4.0); HEMATOCRIT 38.5 % (35.0-46.0); HEMO FLAGS DIFF FINAL; LYMPH % 25.4 % (9.0-44.0); LYMPHOCYTE # 1.1 TH/MM3 (1.0-4.8); MEAN CELL VOLUME 85.9 FL (80.0-100.0); MEAN CORPUSCULAR HEMOGLOBIN 28.4 PG (27.0-34.0); MEAN CORPUSCULAR HGB CONC 33.1 % (32.0-36.0); MONO % 8.6 % (0.0-8.0); NEUT % 61.8 % (16.0-70.0); PLATELET COUNT 250 TH/MM3 (150-450); RED BLOOD COUNT 4.48 MIL/MM3 (4.00-5.30); WHITE BLOOD COUNT 4.3 TH/MM3 (4.0-11.0)
[2017-06-08 08:34] LABS: APTT (PATIENT) 24.5 SEC (24.3-30.1); INTERNATIONAL NORMALIZED RATIO 0.9 RATIO; PROTHROMBIN TIME - PATIENT 10.3 SEC (9.8-11.6)
[2017-06-08 08:36] LABS: ALT (GPT) 18 U/L (10-53); ANION GAP 7 MEQ/L (5-15); AST (GOT) 12 U/L (15-37); BICARBONATE 27.1 MEQ/L (21.0-32.0); BLOOD UREA NITROGEN 16 MG/DL (7-18); CHLORIDE 104 MEQ/L (98-107); GLOMERULAR FILTRATION RATE 77 ML/MIN (>89); POTASSIUM 4.2 MEQ/L (3.5-5.1); SODIUM (NA) 138 MEQ/L (136-145)
--- NOTE | 2017-06-08 08:36 | RADRPT ---
EXAM DATE/TIME: 06/08/2017 07:59 [facility] COMPARISON: CHEST SINGLE AP, January 31, 2016, 10:44. INDICATIONS : Syncope, shortness of breath, fall. MEDICAL HISTORY : None. SURGICAL HISTORY : None. ENCOUNTER: Initial ACUITY: 1 day PAIN SCORE: 0/10 LOCATION: Left chest FINDINGS: Mild left basilar airspace disease. Cardiomediastinal contours are within normal limits. Bony thorax is intact. CONCLUSION: 1. Mild left basilar airspace disease, likely atelectasis. Saeed Ness MD on June 08, 2017 at 8:34 Board Certified Radiologist. This report was verified electronically.
[2017-06-08 08:42] LABS: ALCOHOL LESS THAN 3 MG/DL (0-5)
[2017-06-08 08:44] LABS: BACTERIA, URINE MANY /hpf; BLOOD, URINE NEG (NEG); COMMENT (UR) CATH-CULTURE IND; CULTURE IF INDICATED CATH CULTURE IND; GLUCOSE,URINE NEG (NEG); KETONE, URINE NEG (NEG); NITRITE,URINE POS (NEG); SQUAMOUS EPITHELIAL CELL URINE <1 /hpf (0-5); URINE COLOR YELLOW (YELLW/STRAW)
--- NOTE | 2017-06-08 08:45 | RADRPT ---
EXAM DATE/TIME: 06/08/2017 08:31 [facility] COMPARISON: CT BRAIN W/O CONTRAST, April 16, 2017, 8:40. INDICATIONS : Altered mental status. RADIATION DOSE: 30.60 CTDIvol (mGy) MEDICAL HISTORY : Diabetes mellitus type 2. Cerebrovascular disease. SURGICAL HISTORY : Appendectomy. Cholecystectomy.Hysterectomy. ENCOUNTER: Initial ACUITY: 1 day PAIN SCALE: 0/10 LOCATION: cranial TECHNIQUE: Multiple contiguous axial images were obtained of the head. Using automated exposure control and adj ustment of the mA and/or kV according to patient size, radiation dose was kept as low as reasonably a chievable to obtain optimal diagnostic quality images. DICOM format image data is available electro nically for review and comparison. FINDINGS: CEREBRUM: Mild diffuse cerebral volume loss. The ventricles are normal for age. No evidence of midline shift, mass lesion, hemorrhage or acute infarction. No extra-axial fluid collections are seen. POSTERIOR FOSSA: The cerebellum and brainstem are intact. The 4th ventricle is midline. The cerebellopontine angle i s unremarkable. EXTRACRANIAL: The visualized portion of the orbits is intact. Mild mucoperiosteal thickening in the right sphenoid sinus. SKULL: The calvaria is intact. No evidence of skull fracture. CONCLUSION: 1. No acute intracranial abnormality. Saeed Ness MD on June 08, 2017 at 8:42 Board Certified Radiologist. This report was verified electronically.
[2017-06-08 08:46] LABS: ALKALINE PHOSPHATASE 91 U/L (45-117); TOTAL BILIRUBIN ADULT 0.4 MG/DL (0.2-1.0)
[2017-06-08] MEDS ORDERED: GABA300C5 PO (08:46)
[2017-06-08] MEDS ORDERED: POTA10CA PO (08:46)
[2017-06-08] MEDS ORDERED: GLIM1TAB PO (08:46)
[2017-06-08] MEDS ORDERED: SIMV80TA PO (08:46)
--- NOTE | 2017-06-08 08:53 | RADRPT ---
EXAM DATE/TIME: 06/08/2017 08:34 [facility] COMPARISON: No previous studies available for comparison. INDICATIONS : Left hip pain after falling last night. MEDICAL HISTORY : Diabetes mellitus type 2. Diverticulitis. SURGICAL HISTORY : Appendectomy. Cholecystectomy.Hysterectomy.Lumbar fusion. ENCOUNTER: Initial ACUITY: 2 days PAIN SCORE: 5/10 LOCATION: Left hip. FINDINGS: Lower lumbar gillian and screw fixation hardware appears intact in its visualized portions. Screws noted in the region of the right greater trochanter. Osseous structures appear intact without evidence for acute bony fracture or focal bony destruction. The anatomic alignment of the hip joints bilaterally. The SI joints and pubic symphysis are maintained. Soft tissues are grossly unremarkable. CONCLUSION: 1. No acute fracture or dislocation. Saeed Ness MD on June 08, 2017 at 8:48 Board Certified Radiologist. This report was verified electronically.
[2017-06-08] MEDS ORDERED: PIPERACIL-TAZO 4.5 GM PREMIX 100 ML IV STA (09:10)
[2017-06-08] MEDS ORDERED: ASPIRIN 325 MG TAB PO ONE (09:15)
[2017-06-08] MEDS ORDERED: SODIUM CHLOR 0.9% 1000 ML INJ 1,000 ML IV ONE (09:15)
[2017-06-08] MEDS ORDERED: GLUCAGON 1 MG/ML VIAL OTHER PRN (09:30)
[2017-06-08] MEDS ORDERED: DEXTROSE 50% IN WATER 50 ML VIAL(D50) IV PUSH PRN (09:30)
[2017-06-08] MEDS: SODIUM CHLOR 0.9% 1000 ML INJ 1,000 ML IV SCH ×2 (09:33→23:51)
[2017-06-08] MEDS ORDERED: MORPHINE SULFATE 4 MG/ML INJ IV PUSH PRN ×2 (09:45)
[2017-06-08] MEDS ORDERED: PROCHLORPERAZINE 25 MG SUPP RECTAL PRN (09:45)
[2017-06-08] MEDS ORDERED: traMADol HCL 50 MG TAB PO PRN ×2 (09:45)
[2017-06-08] MEDS ORDERED: ACETAMINOPHEN 325 MG TAB PO PRN ×2 (09:45)
[2017-06-08] MEDS ORDERED: SODIUM CHLORIDE 0.9% FLUSH 10 ML FLUSH IV FLUSH PRN (09:45)
[2017-06-08] MEDS ORDERED: NALOXONE HCL 0.4 MG/ML AMP IV PUSH PRN (09:45)
--- NOTE | 2017-06-08 10:46 | RADRPT ---
EXAM DATE/TIME: 06/08/2017 10:05 [facility] COMPARISON: No previous studies available for comparison. INDICATIONS : Transient ischemic attack. MEDICAL HISTORY : Stroke. Hypercholesterolemia. Gastroesophageal reflux disease. Diverticulitis. Arthritis. Diabetes. MRSA. SURGICAL HISTORY : Hysterectomy. Appendectomy. Cholecystectomy. Bowel resection. ENCOUNTER: Initial ACUITY: 1 day PAIN SCORE: 5/10 LOCATION: Bilateral neck PEAK SYSTOLIC VELOCITIES (cm/sec): ICA/CCA RATIO: Right: 0.9 Left: 1.4 ICA: Right: 74 Left: 97 CCA: Right: 78 Left: 68 ECA: Right: 54 Left: 63 VERTEBRAL: Right: 44 antegrade Left: 72 antegrade Elevated flow velocities and ICA/CCA ratios have been found to correlate with increased degrees of vessel stenosis, calculated as percentage of diameter relative to a normal segment of distal ICA/CCA FINDINGS: RIGHT CAROTID: There is no evidence for a hemodynamically significant carotid stenosis. Minimal int imal hyperplasia is present with scattered calcific plaque. LEFT CAROTID: There is no evidence for a hemodynamically significant carotid stenosis. Minimal inti mal hyperplasia is present with scattered calcific plaque. VERTEBRAL ARTERIES: Flow is antegrade in both vertebral arteries. MISCELLANEOUS: There are no ancillary masses or adenopathy. CONCLUSION: Negative examination for a hemodynamically significant carotid stenosis. Board Certified Radiologist. This report was verified electronically.
[2017-06-08] MEDS ORDERED: SENNOSIDES 8.6 MG TAB PO PRN (12:00)
[2017-06-08] MEDS: INSULIN ASPART SUPPLEMENTAL SCALE SQ SCH ×3 (12:00→20:23)
[2017-06-08] MEDS ORDERED: LACTULOSE SYRUP 20 GM/30 ML CUP PO PRN (12:00)
[2017-06-08] MEDS ORDERED: BISACODYL 10 MG SUPP RECTAL PRN (12:00)
[2017-06-08] MEDS ORDERED: ONDANSETRON HCL 4 MG/2 ML VIAL IVP PRN (12:00)
[2017-06-08] MEDS ORDERED: MAGNESIUM HYDROXIDE SUSP 30 ML CUP PO PRN (12:00)
--- NOTE | 2017-06-08 12:30 | RADRPT ---
EXAM DATE/TIME: 06/08/2017 10:48 [facility] COMPARISON: No previous studies available for comparison. INDICATIONS : Altered mental status. MEDICAL HISTORY : Arthritis. Diabetes mellitus type 2. Diverticulitis. SURGICAL HISTORY : Appendectomy. Cholecystectomy. Fusion, lumbar. ENCOUNTER: Initial ACUITY: 2 day PAIN SCORE: 0/10 LOCATION: head Please note a normal MRA of the brain does not entirely exclude the possibility of a small aneurysm, nor the possibility of distal intracranial vessel disease. TECHNIQUE: 3D time of flight MRA was performed. Source images, multiplanar STS MIP, and 3D volume MIP reconstru ctions were reviewed. FINDINGS: There is excellent visualization of the major intracranial arteries out to the second-order branch ve ssels. There is no evidence for aneurysm, vessel truncation or stenosis, and no evidence for vascula r malformation. CONCLUSION: 1. The exam is limited secondary to motion artifact which limits the interpretation. Unremarkable MR angiography of the brain. Peter Maher MD on June 08, 2017 at 12:27 Board Certified Radiologist. This report was verified electronically.
--- NOTE | 2017-06-08 12:31 | RADRPT ---
EXAM DATE/TIME: 06/08/2017 10:48 [facility] COMPARISON: No previous studies available for comparison. INDICATIONS : Altered mental status. Stroke. MEDICAL HISTORY : Diabetes mellitus type 2. Gastroesophageal reflux disease. Diverticulitis. SURGICAL HISTORY : Appendectomy. Cholecystectomy. Fusion, lumbar. ENCOUNTER: Initial ACUITY: 2 day PAIN SCORE: 0/10 LOCATION: head TECHNIQUE: Multiplanar, multisequence MRI of the brain was performed without contrast. FINDINGS: CEREBRUM: The ventricles are normal for age. No evidence of midline shift, mass lesion, hemorrhage or acute in farction. No extraaxial fluid collections are seen. The pituitary gland and suprasellar cistern are normal in configuration. WHITE MATTER: No significant signal abnormalities are seen in the white matter. POSTERIOR FOSSA: The cerebellum and brainstem are intact. The 4th ventricle is midline. The cerebellopontine angle is unremarkable. The cerebellar tonsils are normal in position. DIFFUSION IMAGING: No focal areas of restricted diffusion are seen. No evidence of acute infarction. EXTRACRANIAL: The visualized portions of the orbits and paranasal sinuses are unremarkable. There is mucosal diseas e involving the mastoid air cell on the right. CONCLUSION: 1. No evidence of acute intracranial pathology. No masses are identified. Peter Maher MD on June 08, 2017 at 12:28 Board Certified Radiologist. This report was verified electronically.
[2017-06-08] MEDS: PRAVASTATIN SOD 80 MG TAB PO SCH (13:17)
[2017-06-08] MEDS: CLOPIDOGREL 75 MG TAB PO SCH (13:18)
[2017-06-08] MEDS: ASPIRIN 325 MG TAB PO SCH (13:18)
[2017-06-08] MEDS: ENOXAPARIN SODIUM 40 MG/0.4 ML SYRINGE SQ SCH (13:19)
[2017-06-08] MEDS: cefTRIAXone INJ 1,000 MG in SODIUM CHLORIDE 0.9% INJ 100 ML IV SCH (13:22)
--- NOTE | 2017-06-08 13:25 | HHI.HP ---
[facility] Service [facility] Primary Care Physician Greg Florez MD Admission Diagnosis altered mental status/UTI/possible TIA Diagnoses: (1) Altered mental status (2) UTI (urinary tract infection) (3) Musculoskeletal pain Chief Complaint: ALTERED MENTAL STATUS/UTI/POSSIBLE TIA/MEDICATION EFFECT Travel History International Travel<30 Days: No Contact w/Intl Traveler <30 Da: No Traveled to Known Affected Are: No History of Present Illness 77-year-old female with history of diabetes, previous TIA, presents to the ER today brought in by EMS after her daughter called, states that the patient is more weak than usual, disoriented. Apparently, last night had been found half way out of bed, was helped back into bed by daughter, and this morning appears disoriented. On evaluation, patient is disoriented, but states she has left hip pain. However, it is unclear whether she is a reliable historian. She denies falling. Modifying Factors: None Associated Signs & Symptoms: Altered mental status Risk Factors: Elderly, TIA history POSSIBLE TIA/UTI/MEDICATION EFFECT Review of Systems Constitutional: COMPLAINS OF: Fatigue, DENIES: Diaphoretic episodes, Fever, Weight gain, Weight loss, Chills, Dizziness, Change in appetite Endocrine: DENIES: Abnorml menstrual pattern, Heat/cold intolerance Eyes: DENIES: Blurred vision, Diplopia, Eye inflammation, Eye pain, Vision loss Ears, nose, mouth, throat: DENIES: Tinnitus, Hearing loss, Vertigo, Nasal discharge, Oral lesions Respiratory: DENIES: Apneas, Cough, Snoring, Wheezing, Hemoptysis, Sputum production Cardiovascular: DENIES: Chest pain, Palpitations, Syncope, Dyspnea on Exertion , PND Gastrointestinal: DENIES: Abdominal pain, Black stools, Bloody stools, Constipation Musculoskeletal: COMPLAINS OF: Joint pain, Back pain, DENIES: Muscle aches, Stiffness, Joint Swelling Integumentary: DENIES: Abnormal pigmentation, Pruritus, Rash, Nail changes, Breast masses Hematologic/lymphatic: DENIES: Bruising, Lymphadenopathy Immunologic/allergic: DENIES: Eczema, Urticaria Neurologic: DENIES: Abnormal gait, Headache, Localized weakness, Paresthesias, Seizures, Speech Problems, Tremor, Poor Balance Psychiatric: COMPLAINS OF: Confusion, DENIES: Anxiety, Mood changes, Depression , Hallucinations, Agitation, Suicidal Ideation, Homicidal Ideation Past Family Social History Past Medical History OSTEOARTHRITIS DEPRESSION BACK PAIN HARD OF HEARING TIA DM DIVERTICULITIS- DIVERTICULOSIS HYPERTENSION GERD Past Surgical History BREAST REDUCTION BACK SURGERY WITH RODS AND SCREWS HYSTERECTOMY APPENDECTOMY CHOLECYSTECTOMY BL CATARACT SURGERY Reported Medications Reported Meds & Active Scripts Active Reported Potassium Chloride ER (Potassium Chloride) 10 Meq Cap 10 Meq PO DAILY Simvastatin 80 Mg Tab 80 Mg PO DAILY Glimepiride 1 Mg Tab 1 Mg PO DAILY Take with breakfast or first main meal Gabapentin 300 Mg Cap 300 Mg PO BID Ambien (Zolpidem Tartrate) 10 Mg Tab 10 Mg PO HS PRN Prilosec (Omeprazole Magnesium) 20 Mg Tab 20 Mg PO DAILY Plavix (Clopidogrel Bisulfate) 75 Mg Tab 75 Mg PO DAILY Allergies: Coded Allergies: bee venom protein (honey bee) (Unverified Allergy, Severe, SWELLING, CARRIES EPIPEN, 06/08/17) *MDRO Multi-Drug Resistant Organism (Verified Adverse Reaction, Unknown, ) 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 Ordered Medications Current Medications IV Flush (NS Flush) 2 ml UNSCH PRN IV FLUSH FLUSH AFTER USING IV ACCESS; Start 06/08/17 at 07:45; Stop 06/08/17 at 10:31; Status DC Aspirin (Aspirin) 325 mg ONCE ONCE PO Last administered on 06/08/17 09:38; Start 06/08/17 at 09:15; Stop 06/08/17 at 09:16; Status DC Piperacillin Sod/ Tazobactam Sod 100 ml @ 200 mls/hr ONCE STAT IV Last administered on 06/08/17 09:30; Start 06/08/17 at 09:10; Stop 06/08/17 at 09:39 ; Status DC Sodium Chloride 1,000 ml @ 999 mls/hr BOLUS ONCE IV Last administered on 06/08 09:30; Start 06/08/17 at 09:15; Stop 06/08/17 at 10:15; Status DC Dextrose (D50w (Vial) Inj) 50 ml UNSCH PRN IV PUSH HYPOGLYCEMIA-SEE COMMENTS; Start 06/08/17 at 09:30 Glucagon (Glucagon Inj) 1 mg UNSCH PRN OTHER HYPOGLYCEMIA-SEE COMMENTS; Start 06/08/17 at 09:30 Insulin Aspart (NovoLOG SUPPLEMENTAL SCALE) 1 ACHS SLIDING SCALE SQ ; Start at 12:00 Clopidogrel Bisulfate (Plavix) 75 mg DAILY PO ; Start 06/08/17 at 12:00 Gabapentin (Neurontin) 300 mg BID PO ; Start 06/08/17 at 21:00 Potassium Chloride (KCl) 10 meq DAILY PO ; Start 06/09/17 at 09:00 Pantoprazole Sodium (Protonix) 20 mg DAILY PO ; Start 06/09/17 at 09:00 Pravastatin Sodium (Pravachol) 80 mg DAILY PO ; Start 06/08/17 at 10:30 IV Flush (NS Flush) 2 ml BID IV FLUSH ; Start 06/08/17 at 21:00; Stop 06/08/17 at 21:00; Status DC IV Flush (NS Flush) 2 ml UNSCH PRN IV FLUSH FLUSH AFTER USING IV ACCESS; Start 06/08/17 at 09:45 Sodium Chloride 1,000 ml @ 70 mls/hr [id number] IV Last administered on t 09:33; Start 06/08/17 at 09:33 Aspirin (Aspirin) 325 mg DAILY PO ; Start 06/08/17 at 12:00 Pravastatin Sodium (Pravachol) 40 mg HS PO ; Start 06/08/17 at 21:00; Stop 06/08 at 21:00; Status DC Enoxaparin Sodium (Lovenox Inj) 40 mg Q24H SQ ; Start 06/08/17 at 12:00 Sodium Chloride (NS Flush) 2 ml UNSCH PRN IV FLUSH FLUSH AFTER USING IV ACCESS ; Start 06/08/17 at 09:45; Stop 06/08/17 at 10:31; Status DC Sodium Chloride (NS Flush) 2 ml BID IV FLUSH ; Start 06/08/17 at 21:00 Acetaminophen (Tylenol) 650 mg Q4H PRN PO TEMP > 100.4; Start 06/08/17 at 09:45 Ondansetron HCl (Zofran Inj) 4 mg Q6H PRN IVP NAUSEA OR VOMITING; Start at 12:00 Prochlorperazine (Compazine Supp) 25 mg Q12H PRN RECTAL NAUSEA OR VOMITING; Start 06/08/17 at 09:45 Acetaminophen (Tylenol) 650 mg Q6H PRN PO PAIN SCALE 1 TO 2; Start 06/08/17 at 09:45 Morphine Sulfate (Morphine Inj) 2 mg Q3H PRN IV PUSH Pain 3-5; if unable to take PO; Start 06/08/17 at 09:45 Morphine Sulfate (Morphine Inj) 4 mg Q3H PRN IV PUSH Pain 6-10;if unable to take PO; Start 06/08/17 at 09:45 Tramadol HCl (Ultram) 50 mg Q4H PRN PO PAIN SCALE 3 TO 5; Start 06/08/17 at 09: 45 Tramadol HCl (Ultram) 100 mg Q4H PRN PO PAIN SCALE 6 TO 10; Start 06/08/17 at 09:45 Naloxone HCl (Narcan Inj) 0.4 mg UNSCH PRN IV PUSH SEE LABEL COMMENTS; Start at 09:45 Senna/Docusate Sodium (Cynthia-Colace) 1 tab BID PO ; Start 06/08/17 at 21:00 Magnesium Hydroxide (Milk Of Magnesia Liq) 30 ml Q12HR PRN PO MILD - MODERATE CONSTIPATION; Start 06/08/17 at 12:00 Sennosides (Senokot) 17.2 mg Q12HR PRN PO MODERATE - SEVERE CONSTIPATION; Start 06/08/17 at 12:00 Bisacodyl (Dulcolax Supp) 10 mg DAILY PRN RECTAL SEVERE CONSITIPATION; Start at 12:00 Lactulose (Lactulose Liq) 30 ml DAILY PRN PO SEVERE CONSITIPATION; Start at 12:00 Ceftriaxone Sodium 1000 mg/ Sodium Chloride 100 ml @ 200 mls/hr Q24H IV ; Start 06/08/17 at 11:00 Family History HYPERTENSION POSSIBLE DM Social History HX OF TOBACCO 2 PACKS A DAY FOR 30PLUS YEARS QUIT 2 YEARS AGO DENIES ALCOHOL DENIES ILLICITS Physical Exam Vital Signs Vital Signs Date Time Temp Pulse Resp B/P (MAP) Pulse Ox O2 Delivery O2 Flow Rate FiO2 06/08/17 12:06 97.8 84 16 161/91 (114) 98 06/08/17 11:08 06/08/17 09:51 97 21 06/08/17 09:45 88 18 141/70 (93) 96 Room Air 06/08/17 07:51 (86) Room Air 06/08/17 07:48 97.5 82 15 140/60 (86) 99 Room Air 06/08/17 07:45 87 15 99 Room Air 06/08/17 07:42 79 15 140/60 (86) 99 Physical Exam GENERAL: This is a well-nourished, well-developed patient, in no apparent distress. SKIN: No rashes, ecchymoses or lesions. Cool and dry. HEAD: Atraumatic. Normocephalic. No temporal or scalp tenderness. VERY HARD OF HEARING EYES: Pupils equal round and reactive. Extraocular motions intact. No scleral icterus. No injection or drainage. ENT: Nose without bleeding, purulent drainage or septal hematoma. Throat without erythema, tonsillar hypertrophy or exudate. Uvula midline. Airway patent. TONGUE MIDLINE NECK: Trachea midline. No JVD or lymphadenopathy. Supple, nontender, no meningeal signs. CARDIOVASCULAR: Regular rate and rhythm without murmurs, gallops, or rubs. S1, S2 NO S3 NO S4 NO HEAVE OR THRILL RESPIRATORY: Clear to auscultation. Breath sounds equal bilaterally. No wheezes , rales, or rhonchi. GASTROINTESTINAL: Abdomen soft, non-tender, nondistended. No hepato-splenomegaly , or palpable masses. No guarding. MUSCULOSKELETAL: Extremities without clubbing, cyanosis, or edema. No joint tenderness, effusion, or edema noted. No calf tenderness. Negative Homans sign bilaterally. DECREASED RANGE OF MOTION LEFT HIP NEUROLOGICAL: Awake and alert. Cranial nerves II through XII intact. Motor and sensory grossly within normal limits. 4 out of 5 muscle strength in all muscle groups. Normal speech. INSIGHT AND JUDGEMENT IS LIMITED MOOD AND BEHAVIOR IS SOMEWHAT ABNORMAL Laboratory Laboratory Tests Test 06/08/17 07:10 06/08/17 08:15 White Blood Count 4.3 Red Blood Count 4.48 Hemoglobin 12.7 Hematocrit 38.5 Mean Corpuscular Volume 85.9 Mean Corpuscular Hemoglobin 28.4 Mean Corpuscular Hemoglobin Concent 33.1 Red Cell Distribution Width 14.0 Platelet Count 250 Mean Platelet Volume 6.9 Neutrophils (%) (Auto) 61.8 Lymphocytes (%) (Auto) 25.4 Monocytes (%) (Auto) 8.6 Eosinophils (%) (Auto) 3.4 Basophils (%) (Auto) 0.8 Neutrophils # (Auto) 2.7 Lymphocytes # (Auto) 1.1 Monocytes # (Auto) 0.4 Eosinophils # (Auto) 0.1 Basophils # (Auto) 0.0 CBC Comment DIFF FINAL Differential Comment Prothrombin Time 10.3 Prothromb Time International Ratio 0.9 Activated Partial Thromboplast Time 24.5 Blood Urea Nitrogen 16 Creatinine 0.74 Random Glucose 124 Total Protein 6.9 Albumin 4.0 Calcium Level 8.5 Alkaline Phosphatase 91 Aspartate Amino Transf (AST/SGOT) 12 Alanine Aminotransferase (ALT/SGPT) 18 Total Bilirubin 0.4 Sodium Level 138 Potassium Level 4.2 Chloride Level 104 Carbon Dioxide Level 27.1 Anion Gap 7 Estimat Glomerular Filtration Rate 77 Lactic Acid Level 1.5 Troponin I LESS THAN 0.02 Thyroid Stimulating Hormone 3rd Gen 2.690 Ethyl Alcohol Level LESS THAN 3 Urine Color YELLOW Urine Turbidity CLEAR Urine pH 5.0 Urine Specific Daggett 1.017 Urine Protein NEG Urine Glucose (UA) NEG Urine Ketones NEG Urine Occult Blood NEG Urine Nitrite POS Urine Bilirubin NEG Urine Urobilinogen LESS THAN 2.0 Urine Leukocyte Esterase MOD Urine RBC 1 Urine WBC 7 Urine WBC Clumps RARE Urine Squamous Epithelial Cells <1 Urine Bacteria MANY Microscopic Urinalysis Comment CATH-CULTURE IND Date/Time Source Procedure Growth Status 06/08/17 08:00 Blood Peripheral Aerobic Blood Culture Pending Received 06/08/17 08:00 Blood Peripheral Anaerobic Blood Culture Pending Received 06/08/17 08:15 Urine Catheterized Urine Urine Culture Pending Received Result Diagram: 06/08/17 0710 06/08/17 0710 Imaging Last Impressions Hip and Pelvis X-Ray 06/08/17 0750 Signed Impressions: Service Date/Time: Thursday, June 08, 2017 08:34 - CONCLUSION: 1. No acute fracture or dislocation. Saeed Ness MD Head CT 06/08/1769 Signed Impressions: Service Date/Time: Thursday, June 08, 2017 08:31 - CONCLUSION: 1. No acute intracranial abnormality. Saeed Ness MD Chest X-Ray 06/08/1761 Signed Impressions: Service Date/Time: Thursday, June 08, 2017 07:59 - CONCLUSION: 1. Mild left basilar airspace disease, likely atelectasis. Saeed Ness MD Head Magnetic Resonance Angiography 06/08/17 Signed Impressions: Service Date/Time: Thursday, June 08, 2017 10:48 - CONCLUSION: 1. The exam is limited secondary to motion artifact which limits the interpretation. Unremarkable MR angiography of the brain. Peter Maher MD Carotid Artery Ultrasound 06/08/17 Signed Impressions: Service Date/Time: Thursday, June 08, 2017 10:05 - CONCLUSION: Negative examination for a hemodynamically significant carotid stenosis. Board Certified Radiologist. This report was verified electronically. Brain MRI 06/08/17 Signed Impressions: Service Date/Time: Thursday, June 08, 2017 10:48 - CONCLUSION: 1. No evidence of acute intracranial pathology. No masses are identified. MD Hannah Stark VTE Risk Assessment Caprini VTE Risk Assessment: Mod/High Risk (score >= 2) Caprini Risk Assessment Model Point Value = 1 Point Value = 2 Point Value = 3 Point Value = 5 Age 41-60 Minor surgery BMI > 25 kg/m2 Swollen legs Varicose veins or History of unexplained or recurrent spontaneous Oral contraceptives or hormone replacement Sepsis (< 1 month) Serious lung disease, including pneumonia (< 1 month) Abnormal pulmonary function Acute myocardial infarction Congestive heart failure (< 1 month) History of inflammatory bowel disease Medical patient at bed rest Age 61-74 Arthroscopic surgery Major open surgery (> 45 min) Laparoscopic surgery (> 45 min) Malignancy Confined to bed (> 72 hours) Immobilizing plaster cast Central venous access Age >= 75 History of VTE Family history of VTE Factor V Leiden Prothrombin [id number] Lupus anticoagulant Anticardiolipin antibodies Elevated serum homocysteine Heparin-induced thrombocytopenia Other congenital or acquired thrombophilia Stroke (< 1 month) Elective arthroplasty Hip, pelvis, or leg fracture Acute spinal cord injury (< 1 month) Prophylaxis Regimen Total Risk Factor Score Risk Level Prophylaxis Regimen 0-1 Low Early ambulation 2 Moderate Order ONE of the following: *Sequential Compression Device (SCD) *Heparin 5000 units SQ BID 3-4 Higher Order ONE of the following medications: *Heparin 5000 units SQ TID *Enoxaparin/Lovenox 40 mg SQ daily (WT < 150 kg, CrCl > 30 mL/min) *Enoxaparin/Lovenox 30 mg SQ daily (WT < 150 kg, CrCl > 10-29 mL/min) *Enoxaparin/Lovenox 30 mg SQ BID (WT < 150 kg, CrCl > 30 mL/min) AND/OR *Sequential Compression Device (SCD) 5 or more Highest Order ONE of the following medications: *Heparin 5000 units SQ TID (Preferred with Epidurals) *Enoxaparin/Lovenox 40 mg SQ daily (WT < 150 kg, CrCl > 30 mL/min) *Enoxaparin/Lovenox 30 mg SQ daily (WT < 150 kg, CrCl > 10-29 mL/min) *Enoxaparin/Lovenox 30 mg SQ BID (WT < 150 kg, CrCl > 30 mL/min) AND *Sequential Compression Device (SCD) Assessment and Plan Problem List: (1) Musculoskeletal pain ICD Code: M79.1 - Myalgia Status: Acute (2) Altered mental status ICD Code: R41.82 - Altered mental status, unspecified Status: Acute (3) UTI (urinary tract infection) ICD Code: N39.0 - Urinary tract infection, site not specified Status: Acute Assessment and Plan POSSIBLE TIA VS MEDICATION EFFECT- STOP FLEXERIL- STOP AMBIEN MRIS, MRAS, ECHO, CAROTIDS PT AND OT AND ST UTI ROCEPHIN DM SLIDING SCALE ACCU-CHECKS AC AND HS HYPERLIPIDEMIA STATIN GERD RESUME PPI CHRONIC BACK PAIN SWITCH TO ROBAXIN- LESS SEDATION MUSCLE RELAXER HARD OF HEARING Code Status FULL CODE Discussed Condition With ER AND PAT AND AND RN Huey Farrell DO Jun 08, 2017 13:25
[2017-06-08] MEDS ORDERED: METHOCARBAMOL 500 MG TAB PO PRN (13:30)
[2017-06-08 14:12] LABS: CREATINE KINASE 95 U/L (26-192)
--- NOTE | 2017-06-08 14:41 | EKG ---
Date Performed: 06/08/2017 Time Performed: 08:00:38 PTAGE: 77 years EKG: Sinus rhythm NORMAL ECG PREVIOUS TRACING : 01/31/2016 16.50 Compared to prior tracing no significant change DOCTOR: Shena Watson Interpretating Date/Time 06/08/2017 14:40:00
--- NOTE | 2017-06-08 16:33 | OTSOAPIP ---
PATIENT WITH ST WILL REATTEMPT. Therapist: Kaylynn Foster OTR/L Signature on file
[2017-06-08] MEDS: GABAPENTIN 300 MG CAP PO SCH (20:24)
[2017-06-08] MEDS: DOCUSATE SODIUM 50 MG/SENNA 8.6 MG TAB PO SCH (20:24)
[2017-06-08] MEDS: SODIUM CHLORIDE 0.9% FLUSH 10 ML FLUSH IV FLUSH SCH (20:24)
[2017-06-08] MEDS ORDERED: PRAVASTATIN SOD 40 MG TAB PO SCH (21:00)
[2017-06-08] MEDS ORDERED: SODIUM CHLORIDE 0.9% FLUSH 5 ML FLUSH IV FLUSH SCH (21:00)
[2017-06-08 21:21] LABS: CREATINE KINASE 56 U/L (26-192)
[2017-06-09 00:36] VITALS: BP 127/64; PULSE 81; RESP 18; TEMP 97.9; O2SAT 95
[2017-06-09 01:03] LABS: CREATINE KINASE 49 U/L (26-192)
[2017-06-09 04:17] VITALS: BP 133/59; PULSE 78; RESP 18; TEMP 98; O2SAT 97
[2017-06-09 07:42] LABS: AUTOMATED NEUTROPHIL # 2.2 TH/MM3 (1.8-7.7); BASOPHIL % 0.7 % (0.0-2.0); EOSINOPHIL # 0.2 TH/MM3 (0-0.4); EOSINOPHIL % 4.6 % (0.0-4.0); HEMATOCRIT 39.9 % (35.0-46.0); HEMO FLAGS DIFF FINAL; LYMPH % 37.3 % (9.0-44.0); LYMPHOCYTE # 1.7 TH/MM3 (1.0-4.8); MEAN CELL VOLUME 85.4 FL (80.0-100.0); MEAN CORPUSCULAR HEMOGLOBIN 28.7 PG (27.0-34.0); MEAN CORPUSCULAR HGB CONC 33.6 % (32.0-36.0); MONO % 9.3 % (0.0-8.0); NEUT % 48.1 % (16.0-70.0); PLATELET COUNT 237 TH/MM3 (150-450); RED BLOOD COUNT 4.68 MIL/MM3 (4.00-5.30); RED CELL DISTRIBUTION WIDTH 13.7 % (11.6-17.2); WHITE BLOOD COUNT 4.5 TH/MM3 (4.0-11.0)
[2017-06-09 07:57] LABS: ALKALINE PHOSPHATASE 79 U/L (45-117); FREE T4 0.91 NG/DL (0.76-1.46); HDL CHOLESTEROL 47.6 MG/DL (40.0-60.0); LDL CHOLESTEROL 76 MG/DL (0-99); TOTAL BILIRUBIN ADULT 0.4 MG/DL (0.2-1.0)
[2017-06-09 08:00] VITALS: BP 135/63; PULSE 75; PULSE 84; RESP 16; TEMP 97.6; O2SAT 94
[2017-06-09 08:00] LABS: ALT (GPT) 14 U/L (10-53); ANION GAP 7 MEQ/L (5-15); AST (GOT) 15 U/L (15-37); BICARBONATE 25.3 MEQ/L (21.0-32.0); BLOOD UREA NITROGEN 12 MG/DL (7-18); CHLORIDE 108 MEQ/L (98-107); GLOMERULAR FILTRATION RATE 80 ML/MIN (>89); MAGNESIUM 1.9 MG/DL (1.5-2.5); SODIUM (NA) 140 MEQ/L (136-145)
[2017-06-09] MEDS: INSULIN ASPART SUPPLEMENTAL SCALE SQ SCH ×2 (08:00→12:00)
--- NOTE | 2017-06-09 08:47 | HHI.PR ---
Subjective Remarks Follow-up for altered mental status. The patient states she went to sleep Tuesday night and the next thing she remembers is being here in the hospital. At this time she feels back to her baseline and has no acute complaints. She has had occasional burning with urination recently. She states her sciatica/ back pain has been bothering her more lately. She recently started on ibuprofen and Flexeril for this about 2 weeks ago. She is diabetic, states her sugars are normally 1001 20, denies any hypoglycemia. She is feeling well and hoping to go home soon. Objective Vitals Vital Signs Date Time Temp Pulse Resp B/P (MAP) Pulse Ox O2 Delivery O2 Flow Rate FiO2 06/09/17 04:17 98.0 78 18 133/59 (83) 97 06/09/17 00:36 97.9 81 18 127/64 (85) 95 06/08/17 22:10 86 06/08/17 20:45 97.8 88 18 124/68 (86) 97 06/08/17 20:03 98 21 06/08/17 15:26 97.6 88 16 179/79 (112) 95 06/08/17 12:06 97.8 84 16 161/91 (114) 98 06/08/17 11:08 06/08/17 11:00 81 06/08/17 09:51 97 21 06/08/17 09:45 88 18 141/70 (93) 96 Room Air I/O 06/08/17 06/08/17 06/08/17 06/09/17 06/09/17 06/09/17 07:00 15:00 23:00 07:00 15:00 23:00 Intake Total 100 ml Output Total 900 ml 2000 ml Balance -800 ml -2000 ml Intake IV Total 100 ml Output Urine Total 900 ml 2000 ml # Voids 1 1 Result Diagram: 06/09/17 0715 06/09/17 0715 Imaging Last Impressions Hip and Pelvis X-Ray 06/08/17 0750 Signed Impressions: Service Date/Time: Thursday, June 08, 2017 08:34 - CONCLUSION: 1. No acute fracture or dislocation. Saeed Ness MD Head CT 06/08/17 0745 Signed Impressions: Service Date/Time: Thursday, June 08, 2017 08:31 - CONCLUSION: 1. No acute intracranial abnormality. Saeed Ness MD Chest X-Ray 06/08/17 0745 Signed Impressions: Service Date/Time: Thursday, June 08, 2017 07:59 - CONCLUSION: 1. Mild left basilar airspace disease, likely atelectasis. Saeed Ness MD Head Magnetic Resonance Angiography 06/08/17 0000 Signed Impressions: Service Date/Time: Thursday, June 08, 2017 10:48 - CONCLUSION: 1. The exam is limited secondary to motion artifact which limits the interpretation. Unremarkable MR angiography of the brain. Peter Maher MD Carotid Artery Ultrasound 06/08/17 0000 Signed Impressions: Service Date/Time: Thursday, June 08, 2017 10:05 - CONCLUSION: Negative examination for a hemodynamically significant carotid stenosis. Board Certified Radiologist. This report was verified electronically. Brain MRI 06/08/17 0000 Signed Impressions: Service Date/Time: Thursday, June 08, 2017 10:48 - CONCLUSION: 1. No evidence of acute intracranial pathology. No masses are identified. Peter Maher MD Objective Remarks GENERAL: Well-developed well-nourished. In no acute distress. SKIN: Warm and dry. No lesions noted. HEENT: Normocephalic. Pupils equal and round. Mucous membranes pink and moist. CARDIOVASCULAR: Regular rate and rhythm. No murmur appreciated. RESPIRATORY: No accessory muscle use. Clear to auscultation. Breath sounds equal bilaterally. GASTROINTESTINAL: Abdomen soft, non-tender, nondistended. Bowel sounds x4. MUSCULOSKELETAL: No obvious deformities. No clubbing or cyanosis. No edema. NEUROLOGICAL: Awake and alert. No focal neurological deficits. Moves upper and lower extremities spontaneously. Normal speech. PSYCHIATRIC: Appropriate mood and affect; insight and judgment normal. A/P Problem List: (1) Musculoskeletal pain ICD Code: M79.1 - Myalgia Status: Chronic (2) Altered mental status ICD Code: R41.82 - Altered mental status, unspecified Status: Resolved (3) UTI (urinary tract infection) ICD Code: N39.0 - Urinary tract infection, site not specified Status: Acute Assessment and Plan 77-year-old female with a past medical history of DM, GERD, chronic back pain, TIA history who presented for weakness and disorientation Acute encephalopathy: Currently improved. Possible secondary to hypoglycemia, medication effect, UTI, other. Reviewed: UA with evidence of UTI. Stroke workup including head CT, brain MRI/ MRA, carotid ultrasound are unremarkable. Afebrile with no leukocytosis. -Recently started on Flexeril, would stop this for now -Hold glimepiride, A1c pending -Hold Ambien -Treating UTI as below -PT eval -Neuro checks -Telemetry monitoring -Gentle IVF UTI: UA with evidence of UTI. Probably symptomatic as confusion and weakness improved with IV antibiotics. Urine culture pending. Continue empiric IV Rocephin for now and follow-up urine culture Diabetes mellitus: Blood glucoses have been well controlled. Hold home glimepiride. Monitor Accu-Cheks. Follow-up A1c. SSI coverage if needed. Chronic back pain: Hold home Flexeril and ibuprofen. Tramadol as needed for pain. Robaxin as needed for spasms. DVT prophylaxis: SCDs, Lovenox Discharge Planning Possible discharge home later today if patient remains stable and asymptomatic and workup remains negative. Addendum 1500: Echocardiogram is unremarkable. PT recommends no restrictions. Urine culture growing gram-negative rods. Patient reassessed with family at bedside who report patient is doing much better. The family thinks that this episode came from taking Flexeril and Ambien to go to sleep the night before she woke up confused. They agree with discontinuing Flexeril and Ambien for now. They agree to follow up with PCP for final urine culture results, will write for 5 days of Macrobid at [place]. Problem Qualifiers (1) UTI (urinary tract infection): Qualified Codes: N30.00 - Acute cystitis without hematuria Amos Rg Jun 09, 2017 08:46
[2017-06-09] MEDS ORDERED: PANTOPRAZOLE SOD 20 MG DELAYED RELEASE TAB PO SCH (09:00)
[2017-06-09] MEDS ORDERED: POTASSIUM CHLORIDE 10 MEQ CAP PO SCH (09:00)
[2017-06-09] MEDS: SODIUM CHLORIDE 0.9% FLUSH 10 ML FLUSH IV FLUSH SCH (09:00)
[2017-06-09] MEDS: PRAVASTATIN SOD 80 MG TAB PO SCH (10:45)
[2017-06-09] MEDS: ASPIRIN 325 MG TAB PO SCH (10:45)
[2017-06-09] MEDS: CLOPIDOGREL 75 MG TAB PO SCH (10:46)
[2017-06-09] MEDS: GABAPENTIN 300 MG CAP PO SCH (10:46)
[2017-06-09] MEDS: DOCUSATE SODIUM 50 MG/SENNA 8.6 MG TAB PO SCH (10:46)
[2017-06-09] MEDS: cefTRIAXone INJ 1,000 MG in SODIUM CHLORIDE 0.9% INJ 100 ML IV SCH (10:49)
[2017-06-09 12:00] VITALS: BP 127/61; PULSE 76; RESP 16; TEMP 98; O2SAT 92
[2017-06-09] MEDS: ENOXAPARIN SODIUM 40 MG/0.4 ML SYRINGE SQ SCH (12:00)
--- NOTE | 2017-06-09 13:42 | ECHRPT ---
Indication: CVA/TIA CONCLUSIONS The left ventricular systolic function is normal with an estimated ejection fraction in the range of 60-65%. Wall thickness is measured at the upper limits of normal. Normal left ventricular size. There is trace tricuspid valve regurgitation. The estimated pulmonary arterial pressure is 28.8 mmHg. BP: 141 / 70 HR: 88 Rhythm: Sinus MEASUREMENTS (Male / Female) Normal Values Technical Quality:Fair 2D ECHO LV Diastolic Diameter PLAX 4.7 cm 4.2 - 5.9 / 3.9 - 5.3 cm LV Systolic Diameter PLAX 3.5 cm IVS Diastolic Thickness 1.3 cm 0.6 - 1.0 / 0.6 - 0.9 cm LVPW Diastolic Thickness 1.2 cm 0.6 - 1.0 / 0.6 - 0.9 cm LV Relative Wall Thickness 0.5 LVOT Diameter 2.0 cm M-MODE Aortic Root Diameter MM 2.4 cm LA Systolic Diameter MM 3.9 cm LA Ao Ratio MM 1.6 AV Cusp Separation MM 1.9 cm DOPPLER AV Peak Velocity 92.3 cm/s AV Peak Gradient 3.4 mmHg LVOT Peak Velocity 65.2 cm/s LVOT Peak Gradient 1.7 mmHg AV Area Cont Eq pk 2.2 cm Mitral E Point Velocity 61.2 cm/s Mitral A Point Velocity 82.4 cm/s Mitral E to A Ratio 0.7 LV E' Lateral Velocity 6.2 cm/s Mitral E to LV E' Lateral Ratio 9.8 LV E' Septal Velocity 6.5 cm/s Mitral E to LV E' Septal Ratio 9.4 TR Peak Velocity 244.0 cm/s TR Peak Gradient 23.8 mmHg Right Atrial Pressure 5.0 mmHg Pulmonary Artery Systolic Pressu 28.8 mmHg Right Ventricular Systolic Press 28.8 mmHg PV Peak Velocity 86.9 cm/s PV Peak Gradient 3.0 mmHg FINDINGS LEFT VENTRICLE The left ventricular systolic function is normal with an estimated ejection fraction in the range of 60-65%. Wall thickness is measured at the upper limits of normal. Normal left ventricular size. RIGHT VENTRICLE Normal right ventricular size and systolic function. LEFT ATRIUM The left atrial size is normal. RIGHT ATRIUM The right atrial size is normal. ATRIAL SEPTUM Normal atrial septal thickness without atrial level shunting by limited color doppler interrogation. AORTA The aortic root and proximal ascending aorta are normal in size on limited imaging. MITRAL VALVE Mild mitral annular calcification. Structurally normal mitral valve. No mitral valve stenosis or regurgitation. AORTIC VALVE Trileaflet aortic valve. No aortic valve stenosis or regurgitation. TRICUSPID VALVE There is trace tricuspid valve regurgitation. The estimated pulmonary arterial pressure is 28.8 mmHg. PULMONARY VALVE No pulmonary valve regurgitation or stenosis. VESSELS The inferior vena cava is normal in size. PERICARDIUM No pericardial effusion. Ki Rosas MD (Electronically Signed) Final Date:09 June 2017 13:41
[2017-06-09] MEDS ORDERED: NITR100C4 PO (15:02)
[2017-06-09 15:35] LABS: HEMOGLOBIN A1a 1.1 %; HEMOGLOBIN Ao 83.6 %; HEMOGLOBIN P3 4.1 %
[2017-06-09 16:06] LABS: HEMOGLOBIN A1a 1.1 %; HEMOGLOBIN A1b 1.9 %; HEMOGLOBIN Ao 83.6 %; HEMOGLOBIN P3 4.1 %
[2017-06-09] MEDS ORDERED: NITROFURANTOIN MONOHYD MACROCR 100 MG CAP PO SCH (18:00)
== END 2017-06-09 16:48 | disposition home or self-care (01) ==
LOC: NEPE 07:34 → NEDA 09:33 → NEPHCDU 11:00
PROVIDERS: ADMIT Hospitalist; ATTEND Hospitalist
DX: R41.82 Altered mental status, unspecified (principal); N39.0 Urinary tract infection, site not specified; B96.20 Unspecified Escherichia coli [E. coli] as the cause of diseases classified elsewhere; E11.649 Type 2 diabetes mellitus with hypoglycemia without coma; M79.1 Myalgia; R53.1 Weakness; G89.29 Other chronic pain; M54.9 Dorsalgia, unspecified; M54.30 Sciatica, unspecified side; R30.0 Dysuria; I10 Essential (primary) hypertension; K21.9 Gastro-esophageal reflux disease without esophagitis; H91.90 Unspecified hearing loss, unspecified ear; K57.92 Diverticulitis of intestine, part unspecified, without perforation or abscess without bleeding; M25.552 Pain in left hip; M19.90 Unspecified osteoarthritis, unspecified site; R55 Syncope and collapse; Z79.01 Long term (current) use of anticoagulants; R06.02 Shortness of breath; Z86.73 Personal history of transient ischemic attack (TIA), and cerebral infarction without residual deficits
CPT/HCPCS: 51702; 70450; 70544; 70551; 71010; 73502; 80053; 80061; 80307; 81001; 82550; 82948; 83036; 83605; 83735; 84100; 84439; 84443; 84484; 85025; 85610; 85730; 87040; 87077; 87086; 87186; 87641; 92610; 93005; 93306; 93880; 94150; 96361; 96365; 96372; 96376; 97162; 97166; 99285; G0378; G8987; G8988; G8996; G8997; G8998; J0696; J1650; J2543; J7030; P9612

== ENCOUNTER 2017-10-24 09:59 | Emergency (ER) | payer OTHER ==
[~2017-10-24] VITALS: Ht 154.9 cm; Wt 64.0 kg
[~2017-10-24 09:59] MED LIST changes: -AMBI10TA PO; -ATOR40TA16 PO; -BACT800T5 PO; -CYCL1TAB29 PO; -GLIM2TAB PO; -IBUP400T20 PO; +NITR100C4 PO; -NORC5TAB PO; +POTA10CA PO; +SIMV80TA PO
[2017-10-24 10:17] VITALS: BP 125/67; PULSE 90; RESP 16; TEMP 98.8; O2SAT 95
[2017-10-24] MEDS ORDERED: GLYB2.5T3 PO (10:59)
[2017-10-24] MEDS ORDERED: ATOR40TA16 PO (10:59)
[2017-10-24] MEDS ORDERED: AMBI10TA PO (10:59)
[2017-10-24] MEDS ORDERED: SODIUM CHLORIDE 0.9% FLUSH 10 ML FLUSH IV FLUSH PRN (11:00)
[2017-10-24 11:15] VITALS: O2SAT 98
--- NOTE | 2017-10-24 11:19 | PD ---
HPI Chief Complaint: GI Complaint Time Seen by Provider: 10:33 Travel History International Travel<30 days: No Contact w/Intl Traveler<30days: No Traveled to known affect area: No History of Present Illness HPI 77-year-old female with history of diverticulitis status post bowel resection with reanastomosis about a year ago by Dr. Prieto, chronic lower back pain with several back surgeries, here for evaluation of diarrhea, abdominal pain, and lower back pain. Patient reports having diarrhea for the last 6 days and describes a light/yellow stool that is soft. She denies melena or hematochezia. She has moderate diffuse abdominal discomfort which is worse with movements. She is also having worsening of her chronic lower back pain. She denies urinary or bowel incontinence or retention. No fevers. No recent travel outside the country. She was on antibiotics about a month ago for a UTI. PFSH Past Medical History Hx Anticoagulant Therapy: Yes (PLAVIX) Arthritis: Yes Asthma: No Blood Disorders: No Depression: Yes Heart Rhythm Problems: No Cancer: No Cardiac Catheterization: No Cardiovascular Problems: Yes (SMALL AAA) High Cholesterol: Yes Chemotherapy: No Congestive Heart Failure: No COPD: No Cerebrovascular Accident: Yes (TIA) Diabetes: Yes (TYPE II) Patient Takes Glucophage: No Diminished Hearing: No Diverticulitis: Yes Endocrine: No Gastrointestinal Disorders: No GERD: Yes Genitourinary: No Hepatitis: No Hiatal Hernia: No Heparin Induced Thrombocytopen: No Hypertension: No Immune Disorder: No Implanted Vascular Access Dvce: No Musculoskeletal: No Neurologic: No Psychiatric: No Reproductive: No Respiratory: No Immunizations Current: Yes Myocardial Infarction: No Radiation Therapy: No Thyroid Disease: No PNEUMOCCOCAL Vaccine (Year): 2 Menopausal: Yes : 4 Para: 4 Past Surgical History AICD: No Appendectomy: Yes (1986) Body Medical Devices: rods and plates in back Cholecystectomy: Yes Coronary Artery Bypass Graft: No Eye Surgery: Yes (UMBERTO. CAT.) Gynecologic Surgery: Yes (HYSTERECTOMY) Hysterectomy: Yes Joint Replacement: No Pacemaker: No Other Surgery: Yes (BREAST REDUCTION) Family History Family Myocardial Infarction: No Social History Alcohol Use: No Tobacco Use: No (quit 2 years ago after 60 yr pack hx) Substance Use: No Allergies-Medications (Allergen,Severity, Reaction): Coded Allergies: bee venom protein (honey bee) (Unverified Allergy, Severe, SWELLING, CARRIES EPIPEN, 10/24/17) Reported Meds & Prescriptions Reported Meds & Active Scripts Active Flagyl (Metronidazole) 500 Mg Tab 500 Mg PO BID 7 Days Cipro (Ciprofloxacin HCl) 500 Mg Tab 500 Mg PO BID 7 Days Reported Atorvastatin (Atorvastatin Calcium) 40 Mg Tab 40 Mg PO HS Glyburide 2.5 Mg Tab 2.5 Mg PO DAILY Take with meals at the same time each day Ambien (Zolpidem Tartrate) 10 Mg Tab 10 Mg PO HS PRN Potassium Chloride ER (Potassium Chloride) 10 Meq Cap 10 Meq PO DAILY Gabapentin 300 Mg Cap 300 Mg PO DAILY Prilosec (Omeprazole Magnesium) 20 Mg Tab 20 Mg PO DAILY Plavix (Clopidogrel Bisulfate) 75 Mg Tab 75 Mg PO DAILY Review of Systems Except as stated in HPI: all other systems reviewed are Neg Physical Exam Narrative GENERAL: Well-developed, well-nourished, comfortable, no apparent distress. SKIN: Focused skin assessment warm/dry. HEAD: Atraumatic. Normocephalic. EYES: Pupils equal and round. No scleral icterus. No injection or drainage. ENT: No nasal bleeding or discharge. Mucous membranes pink and moist. NECK: Trachea midline. No JVD. CARDIOVASCULAR: Regular rate and rhythm. No murmur appreciated. RESPIRATORY: No accessory muscle use. Clear to auscultation. Breath sounds equal bilaterally. GASTROINTESTINAL: Abdomen soft, nondistended. Mild diffuse tenderness without peritoneal signs. Normal bowel sounds. MUSCULOSKELETAL: No obvious deformities. No clubbing. No cyanosis. No edema. Midline vertical scar over the lumbar spine that is well-healed. There is mild midline lumbar spine tenderness without step-off. NEUROLOGICAL: Awake and alert. No obvious cranial nerve deficits. Motor grossly within normal limits. Normal speech. PSYCHIATRIC: Appropriate mood and affect; insight and judgment normal. Data Data Last Documented VS Vital Signs Date Time Temp Pulse Resp B/P (MAP) Pulse Ox O2 Delivery O2 Flow Rate FiO2 10/24/17 11:15 98 Room Air 10/24/17 10:17 98.8 90 16 125/67 (86) Orders Orders Complete Blood Count With Diff (10/24/17 10:58) Comprehensive Metabolic Panel (10/24/17 10:58) Lipase (10/24/17 10:58) Prothrombin Time / Inr (Pt) (10/24/17 10:58) Act Partial Throm Time (Ptt) (10/24/17 10:58) Urinalysis - C+S If Indicated (10/24/17 10:58) Ct Abd/Pel W Iv Contrast(Rout) (10/24/17 10:58) Iv Access Insert/Monitor (10/24/17 10:58) Ecg Monitoring (10/24/17 10:58) Oximetry (10/24/17 10:58) Sodium Chloride 0.9% Flush (Ns Flush) (10/24/17 11:00) C Diff Toxin Pcr (10/24/17 10:58) Stool Ova And Parasite Screen (10/24/17 10:58) Urine Culture (10/24/17 11:12) Ceftriaxone Inj (Rocephin Inj) (10/24/17 11:45) Ct Lumb Spine W Iv Contrast (10/24/17 ) Iohexol 350 Inj (Omnipaque 350 Inj) (10/24/17 12:04) Ciprofloxacin (Cipro) (10/24/17 12:45) Metronidazole (Flagyl) (10/24/17 12:45) Ed Discharge Order (10/24/17 12:49) Labs Laboratory Tests Test 10/24/17 11:12 White Blood Count 4.9 TH/MM3 Red Blood Count 4.63 MIL/MM3 Hemoglobin 12.9 GM/DL Hematocrit 39.7 % Mean Corpuscular Volume 85.6 FL Mean Corpuscular Hemoglobin 27.8 PG Mean Corpuscular Hemoglobin Concent 32.5 % Red Cell Distribution Width 12.7 % Platelet Count 276 TH/MM3 Mean Platelet Volume 7.1 FL Neutrophils (%) (Auto) 58.2 % Lymphocytes (%) (Auto) 27.7 % Monocytes (%) (Auto) 8.5 % Eosinophils (%) (Auto) 3.1 % Basophils (%) (Auto) 2.5 % Neutrophils # (Auto) 2.8 TH/MM3 Lymphocytes # (Auto) 1.4 TH/MM3 Monocytes # (Auto) 0.4 TH/MM3 Eosinophils # (Auto) 0.2 TH/MM3 Basophils # (Auto) 0.1 TH/MM3 CBC Comment DIFF FINAL Differential Comment Prothrombin Time 10.1 SEC Prothromb Time International Ratio 1.0 RATIO Activated Partial Thromboplast Time 24.4 SEC Urine Collection Type CLEAN CATCH Urine Color STRAW Urine Turbidity SLIGHT Urine pH 5.5 Urine Specific [place] 1.010 Urine Protein NEG mg/dL Urine Glucose (UA) NEG mg/dL Urine Ketones NEG mg/dL Urine Occult Blood NEG Urine Nitrite POS Urine Bilirubin NEG Urine Leukocyte Esterase LARGE Urine WBC 50-99 /hpf Urine WBC Clumps MOD Urine Squamous Epithelial Cells 6-8 /hpf Urine Transitional Epithelial Cells 0-5 /hpf Urine Amorphous Sediment MOD Urine Bacteria MOD /hpf Microscopic Urinalysis Comment CULTURE INDICATED Urine Collection Time 1112 Blood Urea Nitrogen 8 MG/DL Creatinine 0.67 MG/DL Random Glucose 106 MG/DL Total Protein 7.2 GM/DL Albumin 3.7 GM/DL Calcium Level 8.9 MG/DL Alkaline Phosphatase 86 U/L Aspartate Amino Transf (AST/SGOT) 16 U/L Alanine Aminotransferase (ALT/SGPT) 19 U/L Total Bilirubin 0.6 MG/DL Sodium Level 137 MEQ/L Potassium Level 3.9 MEQ/L Chloride Level 104 MEQ/L Carbon Dioxide Level 25.1 MEQ/L Anion Gap 8 MEQ/L Estimat Glomerular Filtration Rate 86 ML/MIN Lipase 122 U/L [facility] Medical Decision Making Medical Screen Exam Complete: Yes Emergency Medical Condition: Yes Differential Diagnosis Colitis, diverticulitis, pancreatitis, UTI, pyelonephritis, cystitis, chronic back pain Narrative Course Vital signs reviewed and are within normal limits. CBC is unremarkable. CMP is unremarkable. Lipase is 122. UA is suggestive of UTI. CT abdomen pelvis: CONCLUSION: 1. Borderline wall thickening involving the distal and terminal ileum. 2. Mild focal infrarenal abdominal aortic root aneurysm measuring 3.0 cm. 3. Status post cholecystectomy and hysterectomy. 4. Anastomotic sutures at the rectosigmoid colon. CT lumbar spine: CONCLUSION: 1. Posterior fusion L4-S1. 2. Multilevel degenerative changes with multilevel disc bulges. Patient was made aware of all findings. She is resting comfortably. Her abdominal exam shows no tenderness or peritoneal signs. She was given a dose of 1 g of IV Rocephin for her UA findings and will be started on Cipro and Flagyl for her CT abdomen pelvis finding. Patient is aware of infrarenal AAA and states she is being followed as an outpatient for this. She also reports that she is currently taking a probiotic daily which I encouraged that she continue to help prevent against c diff. She is stable for discharge home with outpatient follow-up with her primary care physician this week. She was advised on when to return to the emergency department. She verbalizes understanding and agreement with plan. Diagnosis Primary Impression: UTI (urinary tract infection) Qualified Codes: N39.0 - Urinary tract infection, site not specified; R31.9 - Hematuria, unspecified Additional Impression: Ileitis Referrals: Primary Care Physician 3 days Additional Instructions: Follow-up with your primary care physician this week. Return to the emergency department for worsening symptoms or any other concerns. Scripts Hydrocodone-Acetaminophen (Hydrocodone-Acetaminophen) 5-325 mg Tab 1 TAB PO Q6H Y for PAIN, #10 TAB 0 Refills Prov: Puneet Piper MD 10/24/17 Metronidazole (Flagyl) 500 Mg Tab 500 MG PO BID for Infection for 7 Days, #14 TAB 0 Refills Prov: Puneet Piper MD 10/24/17 Ciprofloxacin (Cipro) 500 Mg Tab 500 MG PO BID for Infection for 7 Days, #14 TAB 0 Refills Prov: Puneet Piper MD 10/24/17 Disposition: 01 DISCHARGE HOME Condition: Stable Puneet Piper MD Oct 24, 2017 11:18
[2017-10-24 11:21] LABS: BILIRUBIN, URINE NEG (NEG); BLOOD, URINE NEG (NEG); GLUCOSE,URINE NEG (NEG); KETONE, URINE NEG (NEG); NITRITE,URINE POS (NEG); PH, URINE 5.5 (5.0-8.5); URINE LEUKOCYTE ESTERASE LARGE (NEG)
[2017-10-24 11:22] LABS: AUTOMATED NEUTROPHIL # 2.8 TH/MM3 (1.8-7.7); BASOPHIL # 0.1 TH/MM3 (0-0.2); BASOPHIL % 2.5 % (0.0-2.0); EOSINOPHIL # 0.2 TH/MM3 (0-0.4); EOSINOPHIL % 3.1 % (0.0-4.0); HEMATOCRIT 39.7 % (35.0-46.0); HEMOGLOBIN 12.9 GM/DL (11.6-15.3); LYMPH % 27.7 % (9.0-44.0); LYMPHOCYTE # 1.4 TH/MM3 (1.0-4.8); MEAN CELL VOLUME 85.6 FL (80.0-100.0); MEAN CORPUSCULAR HEMOGLOBIN 27.8 PG (27.0-34.0); MEAN CORPUSCULAR HGB CONC 32.5 % (32.0-36.0); MEAN PLATELET VOLUME 7.1 FL (7.0-11.0); MONO % 8.5 % (0.0-8.0); MONOCYTE # 0.4 TH/MM3 (0-0.9); NEUT % 58.2 % (16.0-70.0); PLATELET COUNT 276 TH/MM3 (150-450); RED BLOOD COUNT 4.63 MIL/MM3 (4.00-5.30); RED CELL DISTRIBUTION WIDTH 12.7 % (11.6-17.2); WHITE BLOOD COUNT 4.9 TH/MM3 (4.0-11.0)
[2017-10-24 11:28] LABS: CHLORIDE 104 MEQ/L (98-107); SODIUM (NA) 137 MEQ/L (136-145)
[2017-10-24 11:31] LABS: AMORPHOUS SEDIMENT, URINE MOD; BACTERIA, URINE MOD /hpf; TRANSITIONAL EPI CELLS, URINE 0-5 /hpf; URINE COLOR STRAW (YELLW/STRAW)
[2017-10-24 11:32] LABS: ALBUMIN 3.7 GM/DL (3.4-5.0); BICARBONATE 25.1 MEQ/L (21.0-32.0); BLOOD UREA NITROGEN 8 MG/DL (7-18); CALCIUM 8.9 MG/DL (8.5-10.1); GLUCOSE,RANDOM 106 MG/DL (74-106); WHITE BLOOD CELL CLUMPS MOD
[2017-10-24 11:35] LABS: AST (GOT) 16 U/L (15-37); CREATININE 0.67 MG/DL (0.50-1.00); GLOMERULAR FILTRATION RATE 86 ML/MIN (>89)
[2017-10-24 11:37] LABS: TOTAL BILIRUBIN ADULT 0.6 MG/DL (0.2-1.0); TOTAL PROTEIN 7.2 GM/DL (6.4-8.2)
[2017-10-24 11:38] LABS: ALKALINE PHOSPHATASE 86 U/L (45-117); ALT (GPT) 19 U/L (10-53)
[2017-10-24 11:45] LABS: PROTHROMBIN TIME - PATIENT 10.1 SEC (9.8-11.6)
[2017-10-24] MEDS ORDERED: cefTRIAXone INJ 1,000 MG in SODIUM CHLORIDE 0.9% INJ 100 ML IV ONE (11:45)
[2017-10-24] MEDS ORDERED: IOHEXOL 350 MG/ML 10 ML VIAL (for RAD DIAG) IVCONTRAST ONE (12:04)
--- NOTE | 2017-10-24 12:28 | RADRPT ---
EXAM DATE/TIME: 10/24/2017 11:59 [facility] COMPARISON: CT ABDOMEN & PELVIS W/O CONTRAST, May 20, 2017, 8:50. INDICATIONS : Diarrhea and lower back pain. IV CONTRAST: 95 cc Omnipaque 350 (iohexol) IV ; Cumulative dose for multiple exams. ORAL CONTRAST: No oral contrast ingested. RADIATION DOSE: 9.91 CTDIvol (mGy) MEDICAL HISTORY : Hypercholesterolemia. Diverticulitis. Cerebrovascular disease.Anti coagulant. Diabetes. SURGICAL HISTORY : Cholecystectomy. Hysterectomy.Fusion, lumbar.Bowel Resection. ENCOUNTER: Initial ACUITY: 4 - 6 days PAIN SCALE: 4/10 LOCATION: abdomen TECHNIQUE: Volumetric scanning of the abdomen and pelvis was performed. Using automated exposure control and ad justment of the mA and/or kV according to patient size, radiation dose was kept as low as reasonably achievable to obtain optimal diagnostic quality images. DICOM format image data is available electro nically for review and comparison. FINDINGS: LOWER LUNGS: The visualized lower lungs are clear. LIVER: Homogeneous density without lesion. There is no dilation of the biliary tree. Cholecystectomy. SPLEEN: Normal size without lesion. PANCREAS: Within normal limits. KIDNEYS: Normal in size and shape. There is no mass, stone or hydronephrosis. ADRENAL GLANDS: Within normal limits. VASCULAR: There is mild focal infrarenal abdominal aortic aneurysm measuring 3.0 x 2.7 cm.. BOWEL/MESENTERY: Anastomotic sutures at the rectosigmoid colon. Borderline wall thickening involving distal ileum and terminal ileum There is no free intraperitoneal air or fluid. ABDOMINAL WALL: Within normal limits. RETROPERITONEUM: There is no lymphadenopathy. BLADDER: No wall thickening or mass. REPRODUCTIVE: Status post hysterectomy. INGUINAL: There is no lymphadenopathy or hernia. MUSCULOSKELETAL: Fusion L4-S1. CONCLUSION: 1. Borderline wall thickening involving the distal and terminal ileum. 2. Mild focal infrarenal abdominal aortic root aneurysm measuring 3.0 cm. 3. Status post cholecystectomy and hysterectomy. 4. Anastomotic sutures at the rectosigmoid colon. Scott Flores MD on October 24, 2017 at 12:21 Board Certified Radiologist. This report was verified electronically.
--- NOTE | 2017-10-24 12:33 | RADRPT ---
EXAM DATE/TIME: 10/24/2017 11:59 [facility] COMPARISON: No previous studies available for comparison. INDICATIONS : Lower back pain. No injury. IV CONTRAST: 95 cc Omnipaque 350 (iohexol) IV ; Cumulative dose for multiple exams. RADIATION DOSE: ; Reconstructed from previous dataset, no dose MEDICAL HISTORY : Cerebrovascular disease. Hypercholesterolemia. Diverticulitis.Diabetes. Anti coagulant therapy. SURGICAL HISTORY : Cholecystectomy. Hysterectomy.Fusion, lumbar.Bowel resection. ENCOUNTER: Initial ACUITY: 4 - 6 days PAIN SCALE: 5/10 LOCATION: spine TECHNIQUE: Volumetric scanning of the lumbar spine was performed. Multiplanar reconstructions in the sagittal, coronal and oblique axial planes were performed. Using automated exposure control and adjustment of the mA and/or kV according to patient size, radiation dose was kept as low as reasonably achievable t o obtain optimal diagnostic quality images. DICOM format image data is available electronically for review and comparison. FINDINGS: Advanced multilevel degenerative changes including L1-2, L2-3, L3-4 levels. Posterior fusion L4-S1. M inimal retrolisthesis L2 on L3. No fracture seen. L1-L2: The disc, uncovertebral joints, central canal, foramina, and facets are normal. . L3-L4: Mild broad-based disc bulge abuts ventral thecal sac without canal stenosis. L4-L5: The disc, uncovertebral joints, central canal, foramina, and facets are normal. . CONCLUSION: 1. Posterior fusion L4-S1. 2. Multilevel degenerative changes with multilevel disc bulges. Scott Flores MD on October 24, 2017 at 12:27 Board Certified Radiologist. This report was verified electronically.
[2017-10-24] MEDS ORDERED: CIPROFLOXACIN 500 MG TAB PO ONE (12:45)
[2017-10-24] MEDS ORDERED: metroNIDAZOLE 500 MG TAB PO ONE (12:45)
[2017-10-24] MEDS ORDERED: CIPR-9 PO (12:49)
[2017-10-24] MEDS ORDERED: METR-1 PO (12:49)
[2017-10-24] MEDS ORDERED: HYDR-3516 PO (12:58)
[2017-10-24 13:14] VITALS: BP 112/75; PULSE 65; RESP 16; O2SAT 98
== END 2017-10-24 13:16 | disposition home or self-care (01) ==
LOC: PHED 09:59
DX: N39.0 Urinary tract infection, site not specified (principal); R31.9 Hematuria, unspecified; K52.9 Noninfective gastroenteritis and colitis, unspecified; M54.5 Low back pain; B96.1 Klebsiella pneumoniae [K. pneumoniae] as the cause of diseases classified elsewhere; E11.9 Type 2 diabetes mellitus without complications; K21.9 Gastro-esophageal reflux disease without esophagitis; E78.00 Pure hypercholesterolemia, unspecified; Z79.01 Long term (current) use of anticoagulants; Z79.84 Long term (current) use of oral hypoglycemic drugs; Z87.39 Personal history of other diseases of the musculoskeletal system and connective tissue; Z86.79 Personal history of other diseases of the circulatory system; Z86.73 Personal history of transient ischemic attack (TIA), and cerebral infarction without residual deficits; Z87.19 Personal history of other diseases of the digestive system
CPT/HCPCS: 72132; 74177; 80053; 81001; 83690; 85025; 85610; 85730; 87077; 87086; 87186; 96365; 99284; J0696; Q9967

== ENCOUNTER 2017-10-28 09:15 | Emergency (ER) | payer OTHER ==
[~2017-10-28] VITALS: TEMP 97.7; Ht 154.9 cm; Wt 64.5 kg
[~2017-10-28 09:15] MED LIST changes: +AMBI10TA PO; +ATOR40TA16 PO; +CIPR-9 PO; +GLYB2.5T3 PO; +HYDR-3516 PO; +METR-1 PO; -NITR100C4 PO; -SIMV80TA PO
[2017-10-28 09:18] VITALS: BP 141/68; PULSE 96; RESP 16; TEMP 98; O2SAT 92
[2017-10-28 09:25] VITALS: BP 129/60; PULSE 83; RESP 16; TEMP 97.7; O2SAT 96
[2017-10-28] MEDS ORDERED: SODIUM CHLOR 0.9% 1000 ML INJ 1,000 ML IV SCH (09:40)
[2017-10-28] MEDS ORDERED: SODIUM CHLORIDE 0.9% FLUSH 10 ML FLUSH IV FLUSH PRN (09:45)
[2017-10-28] MEDS ORDERED: MORPHINE SULFATE 4 MG/ML INJ IV PUSH ONE (09:45)
[2017-10-28] MEDS ORDERED: ONDANSETRON HCL 4 MG/2 ML VIAL IVP ONE (09:45)
[2017-10-28 10:02] LABS: BILIRUBIN, URINE NEG (NEG); BLOOD, URINE NEG (NEG); GLUCOSE,URINE NEG (NEG); KETONE, URINE NEG (NEG); NITRITE,URINE NEG (NEG); PH, URINE 5.5 (5.0-8.5); URINE LEUKOCYTE ESTERASE SMALL (NEG)
--- NOTE | 2017-10-28 10:02 | PD ---
HPI Chief Complaint: GI Complaint Time Seen by Provider: 09:30 Travel History International Travel<30 days: No Contact w/Intl Traveler<30days: No Traveled to known affect area: No History of Present Illness HPI 77-year-old female arrives complaining of generalized abdominal pain and black stool. Black stool started 2 days ago. 4 days ago the patient was seen here and underwent evaluation including a CT scan the abdomen and pelvis and lumbar spine which revealed ileitis and a urinary tract infection. Patient took antibiotics and felt better initially. No Maalox Pepto-Bismol or iron ingestion. The patient also has pain in the left hip without injury. No fever or vomiting. Minimal nausea occurred. PFSH Past Medical History Hx Anticoagulant Therapy: Yes (PLAVIX) Arthritis: Yes Asthma: No Blood Disorders: No Depression: Yes Heart Rhythm Problems: No Cancer: No Cardiac Catheterization: No Cardiovascular Problems: Yes (SMALL AAA) High Cholesterol: Yes Chemotherapy: No Congestive Heart Failure: No COPD: No Cerebrovascular Accident: Yes (TIA) Diabetes: Yes (TYPE II) Patient Takes Glucophage: No Diminished Hearing: No Diverticulitis: Yes Endocrine: No Gastrointestinal Disorders: No GERD: Yes Genitourinary: No Hepatitis: No Hiatal Hernia: No Heparin Induced Thrombocytopen: No Hypertension: No Immune Disorder: No Implanted Vascular Access Dvce: No Musculoskeletal: Yes (CHRONIC BACK PAIN) Neurologic: No Psychiatric: No Reproductive: No Respiratory: No Immunizations Current: Yes Myocardial Infarction: No Radiation Therapy: No Thyroid Disease: No PNEUMOCCOCAL Vaccine (Year): 2 ?: Not Menopausal: Yes : 4 Para: 4 Past Surgical History AICD: No Appendectomy: Yes (1986) Body Medical Devices: rods and plates in back Cholecystectomy: Yes Coronary Artery Bypass Graft: No Eye Surgery: Yes (UMBERTO. CAT.) Gynecologic Surgery: Yes (HYSTERECTOMY) Hysterectomy: Yes Joint Replacement: No Pacemaker: No Other Surgery: Yes (BREAST REDUCTION) Social History Alcohol Use: No Tobacco Use: No (quit 2 years ago after 60 yr pack hx) Substance Use: No Allergies-Medications (Allergen,Severity, Reaction): Coded Allergies: bee venom protein (honey bee) (Unverified Allergy, Severe, SWELLING, CARRIES EPIPEN, 10/28/17) Reported Meds & Prescriptions Reported Meds & Active Scripts Active Hydrocodone-Acetaminophen 5-325 mg Tab 1 Tab PO Q6H PRN Flagyl (Metronidazole) 500 Mg Tab 500 Mg PO BID 7 Days Cipro (Ciprofloxacin HCl) 500 Mg Tab 500 Mg PO BID 7 Days Reported Atorvastatin (Atorvastatin Calcium) 40 Mg Tab 40 Mg PO HS Glyburide 2.5 Mg Tab 2.5 Mg PO DAILY Take with meals at the same time each day Ambien (Zolpidem Tartrate) 10 Mg Tab 10 Mg PO HS PRN Potassium Chloride ER (Potassium Chloride) 10 Meq Cap 10 Meq PO DAILY Gabapentin 300 Mg Cap 300 Mg PO DAILY Prilosec (Omeprazole Magnesium) 20 Mg Tab 20 Mg PO DAILY Plavix (Clopidogrel Bisulfate) 75 Mg Tab 75 Mg PO DAILY Review of Systems Except as stated in HPI: all other systems reviewed are Neg Physical Exam Narrative GENERAL: 77-year-old female well-nourished well-developed pleasant SKIN: Warm and dry. HEAD: Atraumatic. Normocephalic. EYES: Pupils equal and round. No scleral icterus. No injection or drainage. ENT: No nasal bleeding or discharge. Mucous membranes pink and moist. NECK: Trachea midline. No JVD. CARDIOVASCULAR: Regular rate and rhythm. RESPIRATORY: No accessory muscle use. Clear to auscultation. Breath sounds equal bilaterally. GASTROINTESTINAL: Abdomen soft, non-tender, nondistended. Hepatic and splenic margins not palpable. MUSCULOSKELETAL: Minimal tenderness overlying the left greater trochanter. No pain with axial load. No weakness with toe upward or downward flexion on either side. Hip flexion preserved. NEUROLOGICAL: Awake and alert. No obvious cranial nerve deficits. Motor grossly within normal limits. Five out of 5 muscle strength in the arms and legs. Normal speech. PSYCHIATRIC: Appropriate mood and affect; insight and judgment normal. Data Data Last Documented VS Vital Signs Date Time Temp Pulse Resp B/P (MAP) Pulse Ox O2 Delivery O2 Flow Rate FiO2 10/28/17 11:30 59 16 125/70 (88) 96 Room Air 10/28/17 09:25 97.7 Vital signs reviewed Orders Orders Complete Blood Count With Diff (10/28/17 09:40) Comprehensive Metabolic Panel (10/28/17 09:40) Lipase (10/28/17 09:40) Lactic Acid (10/28/17 09:40) Urinalysis - C+S If Indicated (10/28/17 09:40) Iv Access Insert/Monitor (10/28/17 09:40) Ecg Monitoring (10/28/17 09:40) Oximetry (10/28/17 09:40) Morphine Inj (Morphine Inj) (10/28/17 09:45) Ondansetron Inj (Zofran Inj) (10/28/17 09:45) Sodium Chlor 0.9% 1000 Ml Inj (Ns 1000 M (10/28/17 09:40) Sodium Chloride 0.9% Flush (Ns Flush) (10/28/17 09:45) Lactic Acid (10/28/17 11:50) Ed Discharge Order (10/28/17 12:13) Labs Laboratory Tests Test 10/28/17 09:30 10/28/17 09:50 10/28/17 11:45 Urine Collection Type CLEAN CATCH Urine Color YELLOW Urine Turbidity CLEAR Urine pH 5.5 Urine Specific [place] 1.014 Urine Protein NEG mg/dL Urine Glucose (UA) NEG mg/dL Urine Ketones NEG mg/dL Urine Occult Blood NEG Urine Nitrite NEG Urine Bilirubin NEG Urine Leukocyte Esterase SMALL Urine WBC 3-5 /hpf Urine Squamous Epithelial Cells 0-5 /hpf Urine Bacteria RARE /hpf Urine Hyaline Casts 0-2 /lpf Urine Mucus MOD /lpf Microscopic Urinalysis Comment CULT NOT INDICATED White Blood Count 4.3 TH/MM3 Red Blood Count 4.65 MIL/MM3 Hemoglobin 12.8 GM/DL Hematocrit 39.3 % Mean Corpuscular Volume 84.5 FL Mean Corpuscular Hemoglobin 27.6 PG Mean Corpuscular Hemoglobin Concent 32.7 % Red Cell Distribution Width 12.7 % Platelet Count 292 TH/MM3 Mean Platelet Volume 7.3 FL Neutrophils (%) (Auto) 65.1 % Lymphocytes (%) (Auto) 23.9 % Monocytes (%) (Auto) 7.1 % Eosinophils (%) (Auto) 2.8 % Basophils (%) (Auto) 1.1 % Neutrophils # (Auto) 2.9 TH/MM3 Lymphocytes # (Auto) 1.0 TH/MM3 Monocytes # (Auto) 0.3 TH/MM3 Eosinophils # (Auto) 0.1 TH/MM3 Basophils # (Auto) 0.0 TH/MM3 CBC Comment DIFF FINAL Differential Comment Blood Urea Nitrogen 7 MG/DL Creatinine 0.84 MG/DL Random Glucose 167 MG/DL Total Protein 7.3 GM/DL Albumin 3.8 GM/DL Calcium Level 8.9 MG/DL Alkaline Phosphatase 84 U/L Aspartate Amino Transf (AST/SGOT) 23 U/L Alanine Aminotransferase (ALT/SGPT) 25 U/L Total Bilirubin 0.3 MG/DL Sodium Level 140 MEQ/L Potassium Level 3.6 MEQ/L Chloride Level 105 MEQ/L Carbon Dioxide Level 26.6 MEQ/L Anion Gap 8 MEQ/L Estimat Glomerular Filtration Rate 66 ML/MIN Lactic Acid Level 2.5 mmol/L 1.1 mmol/L Lipase 156 U/L [facility] Medical Decision Making Medical Screen Exam Complete: Yes Emergency Medical Condition: Yes Medical Record Reviewed: Yes Differential Diagnosis Constipation, Gastritis, Acute Cholecystitis, Biliary Colic, Pancreatitis, CHAVEZ , Hepatitis, Bowel Obstruction, Cystitis, Mesenteric Ischemia, AAA, Appendicitis , Renal Stone/Hydronephrosis, GERD, perforated viscous Narrative Course CBC & BMP Diagram 10/28/17 09:50 Total Protein 7.3, Albumin 3.8, Calcium Level 8.9, Alkaline Phosphatase 84, Aspartate Amino Transf (AST/SGOT) 23, Alanine Aminotransferase (ALT/SGPT) 25, Total Bilirubin 0.3 Initial lactic acid 2.4 Review lactic acid 1.0 The stool guaiac study is negative with some dark brown stool. No mass or hemorrhoid or fissure or fistula. Patient is stable she is noted to have a 3 cm aortic aneurysm seen on prior CT Which the patient is aware of and follows with on the outside. Patient has been resting comfortably throughout ER stay and she stable for discharge Follow up with Dr Kim was discussed and patient verbalized agreement to do so. Diagnosis Primary Impression: Abdominal pain Qualified Codes: R10.30 - Lower abdominal pain, unspecified Additional Impressions: Dark stools Aortic aneurysm Qualified Codes: I71.4 - Abdominal aortic aneurysm, without rupture Referrals: Mya Marrero MD call for appointment Entry Examiner Med/Other Pt SpecificInfo: No Change to Meds Disposition: 01 DISCHARGE HOME Condition: Stable Blaine Parra MD Oct 28, 2017 10:02
[2017-10-28 10:04] LABS: URINE COLOR YELLOW (YELLW/STRAW)
[2017-10-28 10:06] LABS: HYALINE CAST, URINE 0-2 /lpf (RARE); MUCUS URINE MOD /lpf (OCC)
[2017-10-28 10:07] LABS: BACTERIA, URINE RARE /hpf; SQUAMOUS EPITHELIAL CELL URINE 0-5 /hpf (0-5)
[2017-10-28 10:07] LABS: AUTOMATED NEUTROPHIL # 2.9 TH/MM3 (1.8-7.7); BASOPHIL % 1.1 % (0.0-2.0); EOSINOPHIL # 0.1 TH/MM3 (0-0.4); EOSINOPHIL % 2.8 % (0.0-4.0); HEMATOCRIT 39.3 % (35.0-46.0); HEMOGLOBIN 12.8 GM/DL (11.6-15.3); LYMPH % 23.9 % (9.0-44.0); MEAN CELL VOLUME 84.5 FL (80.0-100.0); MEAN CORPUSCULAR HEMOGLOBIN 27.6 PG (27.0-34.0); MEAN CORPUSCULAR HGB CONC 32.7 % (32.0-36.0); MEAN PLATELET VOLUME 7.3 FL (7.0-11.0); MONO % 7.1 % (0.0-8.0); MONOCYTE # 0.3 TH/MM3 (0-0.9); NEUT % 65.1 % (16.0-70.0); PLATELET COUNT 292 TH/MM3 (150-450); RED BLOOD COUNT 4.65 MIL/MM3 (4.00-5.30); RED CELL DISTRIBUTION WIDTH 12.7 % (11.6-17.2); WHITE BLOOD COUNT 4.3 TH/MM3 (4.0-11.0)
[2017-10-28 10:10] VITALS: O2SAT 95
[2017-10-28 10:12] LABS: CHLORIDE 105 MEQ/L (98-107); SODIUM (NA) 140 MEQ/L (136-145)
[2017-10-28 10:18] LABS: ALBUMIN 3.8 GM/DL (3.4-5.0); BICARBONATE 26.6 MEQ/L (21.0-32.0); BLOOD UREA NITROGEN 7 MG/DL (7-18); CALCIUM 8.9 MG/DL (8.5-10.1); GLUCOSE,RANDOM 167 MG/DL (74-106)
[2017-10-28 10:21] LABS: ALT (GPT) 25 U/L (10-53); AST (GOT) 23 U/L (15-37); CREATININE 0.84 MG/DL (0.50-1.00); GLOMERULAR FILTRATION RATE 66 ML/MIN (>89)
[2017-10-28 10:23] LABS: TOTAL BILIRUBIN ADULT 0.3 MG/DL (0.2-1.0); TOTAL PROTEIN 7.3 GM/DL (6.4-8.2)
[2017-10-28 10:24] LABS: ALKALINE PHOSPHATASE 84 U/L (45-117)
[2017-10-28 11:30] VITALS: BP 125/70; PULSE 59; RESP 16; O2SAT 96
== END 2017-10-28 12:35 | disposition home or self-care (01) ==
LOC: PHED 09:15
DX: R10.84 Generalized abdominal pain (principal); I71.4 Abdominal aortic aneurysm, without rupture; E78.00 Pure hypercholesterolemia, unspecified
CPT/HCPCS: 80053; 81001; 83605; 83690; 85025; 96361; 96374; 96375; 99284; J2270; J2405; J7030

== ENCOUNTER 2017-11-05 09:40 | Emergency (ER) | payer OTHER ==
[~2017-11-05] VITALS: Ht 154.9 cm; Wt 64.8 kg
[2017-11-05 09:46] VITALS: BP 119/62; PULSE 83; RESP 16; TEMP 98.3; O2SAT 96
--- NOTE | 2017-11-05 11:10 | PD ---
HPI Chief Complaint: Flank/Kidney Pain Time Seen by Provider: 11:09 Travel History International Travel<30 days: No Contact w/Intl Traveler<30days: No Traveled to known affect area: No History of Present Illness HPI Patient presents for her third evaluation in 2 weeks. Reports left back pain with history of degenerative disc disease that radiates into her groin and gluteus. Aggravated with movement. Reports loose stools during the same time. Denies any recent camping travel or strange foods. Admits to antibiotics which she thinks were Cipro and Flagyl for [address] Florez who they have not seen in 13 years. Previous records reveal normal vitals normal blood work and a UTI on 10/24 which was treated with Cipro. Culture reveals susceptibility. CT lumbar spine reveal degenerative disc disease. CT the abdomen and pelvis revealed some thickening of previous anastomoses secondary to colon resection by Dr. Crouch. Hemoccult was negative. PFSH Past Medical History Hx Anticoagulant Therapy: Yes (PLAVIX) Arthritis: Yes Asthma: No Blood Disorders: No Depression: Yes Heart Rhythm Problems: No Cancer: No Cardiac Catheterization: No Cardiovascular Problems: Yes (SMALL AAA) High Cholesterol: Yes Chemotherapy: No Congestive Heart Failure: No COPD: No Cerebrovascular Accident: Yes (TIA) Diabetes: Yes (TYPE II) Patient Takes Glucophage: No Diminished Hearing: No Diverticulitis: Yes Endocrine: No Gastrointestinal Disorders: No GERD: Yes Genitourinary: No Hepatitis: No Hiatal Hernia: No Heparin Induced Thrombocytopen: No Hypertension: No Immune Disorder: No Implanted Vascular Access Dvce: No Musculoskeletal: Yes (CHRONIC BACK PAIN) Neurologic: No Psychiatric: No Reproductive: No Respiratory: No Immunizations Current: Yes Myocardial Infarction: No Radiation Therapy: No Thyroid Disease: No Tetanus Vaccination: < 5 Years Influenza Vaccination: Yes PNEUMOCCOCAL Vaccine (Year): 2 Menopausal: Yes : 4 Para: 4 Past Surgical History AICD: No Appendectomy: Yes (1986) Body Medical Devices: rods and plates in back Cholecystectomy: Yes Coronary Artery Bypass Graft: No Eye Surgery: Yes (UMBERTO. CAT.) Gynecologic Surgery: Yes (HYSTERECTOMY) Hysterectomy: Yes Joint Replacement: No Pacemaker: No Other Surgery: Yes (BREAST REDUCTION) Social History Alcohol Use: No Tobacco Use: No (quit 2 years ago after 60 yr pack hx) Substance Use: No Allergies-Medications (Allergen,Severity, Reaction): Coded Allergies: bee venom protein (honey bee) (Unverified Allergy, Severe, SWELLING, CARRIES EPIPEN, 11/05/17) Reported Meds & Prescriptions Reported Meds & Active Scripts Active Reported Atorvastatin (Atorvastatin Calcium) 40 Mg Tab 40 Mg PO HS Glyburide 2.5 Mg Tab 2.5 Mg PO DAILY Take with meals at the same time each day Ambien (Zolpidem Tartrate) 10 Mg Tab 10 Mg PO HS PRN Potassium Chloride ER (Potassium Chloride) 10 Meq Cap 10 Meq PO DAILY Gabapentin 300 Mg Cap 300 Mg PO DAILY Prilosec (Omeprazole Magnesium) 20 Mg Tab 20 Mg PO DAILY Plavix (Clopidogrel Bisulfate) 75 Mg Tab 75 Mg PO DAILY Review of Systems General / Constitutional: No: Fever Eyes: No: Visual changes HENT: No: Headaches Cardiovascular: No: Chest Pain or Discomfort Respiratory: No: Shortness of Breath Gastrointestinal: Positive: Diarrhea, Abdominal Pain Genitourinary: No: Dysuria Musculoskeletal: Positive: Pain Skin: No Rash Neurologic: No: Weakness Psychiatric: No: Depression Endocrine: No: Polydipsia Hematologic/Lymphatic: No: Easy Bruising Physical Exam Narrative GENERAL: Well-nourished, well-developed patient. SKIN: Focused skin assessment warm/dry. HEAD: Normocephalic. EYES: No scleral icterus. No injection or drainage. NECK: Supple, trachea midline. No JVD or lymphadenopathy. CARDIOVASCULAR: Regular rate and rhythm without murmurs, gallops, or rubs. RESPIRATORY: Breath sounds equal bilaterally. No accessory muscle use. GASTROINTESTINAL: Abdomen soft, mild tenderness of the left lower quadrant, nondistended. MUSCULOSKELETAL: No cyanosis, or edema. BACK: Nontender without obvious deformity. No CVA tenderness. Examination of the thoracic and lumbar spine reveals no midline tenderness left- sided paraspinous pain radiating into the gluteus, negative straight leg raise Data Data Last Documented VS Vital Signs Date Time Temp Pulse Resp B/P (MAP) Pulse Ox O2 Delivery O2 Flow Rate FiO2 11/05/17 12:00 66 14 129/61 (83) 97 Room Air 11/05/17 09:46 98.3 Orders Orders Urinalysis - C+S If Indicated (11/05/17 09:50) Complete Blood Count With Diff (11/05/17 11:22) Comprehensive Metabolic Panel (11/05/17 11:22) Lipase (11/05/17 11:22) Lactic Acid (11/05/17 11:22) Ct Abd/Pel W Iv Contrast(Rout) (11/05/17 11:22) Iv Access Insert/Monitor (11/05/17 11:22) Ecg Monitoring (11/05/17 11:22) Oximetry (11/05/17 11:22) Sodium Chloride 0.9% Flush (Ns Flush) (11/05/17 11:30) Dicyclomine Inj (Bentyl Inj) (11/05/17 11:30) Iohexol 350 Inj (Omnipaque 350 Inj) (11/05/17 13:00) Labs Laboratory Tests Test 11/05/17 11:50 White Blood Count 4.9 TH/MM3 Red Blood Count 4.70 MIL/MM3 Hemoglobin 13.0 GM/DL Hematocrit 39.6 % Mean Corpuscular Volume 84.3 FL Mean Corpuscular Hemoglobin 27.7 PG Mean Corpuscular Hemoglobin Concent 32.9 % Red Cell Distribution Width 13.6 % Platelet Count 338 TH/MM3 Mean Platelet Volume 7.1 FL Neutrophils (%) (Auto) 68.2 % Lymphocytes (%) (Auto) 22.3 % Monocytes (%) (Auto) 6.0 % Eosinophils (%) (Auto) 2.7 % Basophils (%) (Auto) 0.8 % Neutrophils # (Auto) 3.4 TH/MM3 Lymphocytes # (Auto) 1.1 TH/MM3 Monocytes # (Auto) 0.3 TH/MM3 Eosinophils # (Auto) 0.1 TH/MM3 Basophils # (Auto) 0.0 TH/MM3 CBC Comment DIFF FINAL Differential Comment Urine Collection Type CLEAN CATCH Urine Color YELLOW Urine Turbidity CLEAR Urine pH 5.0 Urine Specific [place] 1.007 Urine Protein NEG mg/dL Urine Glucose (UA) NEG mg/dL Urine Ketones NEG mg/dL Urine Occult Blood NEG Urine Nitrite NEG Urine Bilirubin NEG Urine Leukocyte Esterase TRACE Urine WBC 0-2 /hpf Urine Squamous Epithelial Cells 0-5 /hpf Urine Yeast (Budding) MANY Microscopic Urinalysis Comment CULT NOT INDICATED Urine Collection Time 11:50 Blood Urea Nitrogen 10 MG/DL Creatinine 0.71 MG/DL Random Glucose 165 MG/DL Total Protein 7.3 GM/DL Albumin 3.7 GM/DL Calcium Level 8.9 MG/DL Alkaline Phosphatase 85 U/L Aspartate Amino Transf (AST/SGOT) 16 U/L Alanine Aminotransferase (ALT/SGPT) 24 U/L Total Bilirubin 0.3 MG/DL Sodium Level 139 MEQ/L Potassium Level 3.9 MEQ/L Chloride Level 105 MEQ/L Carbon Dioxide Level 26.9 MEQ/L Anion Gap 7 MEQ/L Estimat Glomerular Filtration Rate 80 ML/MIN Lactic Acid Level 1.9 mmol/L Lipase 234 U/L MDM Medical Decision Making Medical Screen Exam Complete: Yes Emergency Medical Condition: Yes Differential Diagnosis Colitis, diverticulitis, UTI, multilevel degenerative disc disease with musculoskeletal pain Narrative Course Assessment and plan discussed with patient and at bedside. Labs reviewed and normal. Last 72 hours Impressions Abdomen/Pelvis CT 11/05/17 1122 Signed Impressions: Service Date/Time: Sunday, November 05, 2017 12:49 - CONCLUSION: 1. Stable mild aneurysmal dilatation of the mid abdominal aorta at 3 cm. 2. Status post cholecystectomy. 3. No acute pathology. Zacarias Tarango MD Diagnosis Primary Impression: Thoracolumbar back pain Additional Impression: Diarrhea Qualified Codes: R19.7 - Diarrhea, unspecified Patient Instructions: General Instructions Additional Instructions: Encourage nonsteroidal anti-inflammatories warm heat gentle stretching and strengthening and massage. Patient has pain medication at home. Encouraged a bland high-fiber brat diet. Encouraged a dry fiber supplement. Encouraged to follow-up with PCP/gastroenterology. Return to emergency room with any onset of new symptoms. Med/Other Pt SpecificInfo: No Meds Exist/No RX given Disposition: 01 DISCHARGE HOME Condition: Good Zelalem Denise MD Nov 05, 2017 11:10
[2017-11-05] MEDS ORDERED: DICYCLOMINE HCL 20 MG/2 ML VIAL IM ONE (11:30)
[2017-11-05] MEDS ORDERED: SODIUM CHLORIDE 0.9% FLUSH 10 ML FLUSH IV FLUSH PRN (11:30)
[2017-11-05 12:00] VITALS: BP 129/61; PULSE 66; RESP 14; O2SAT 97
[2017-11-05 12:00] LABS: AUTOMATED NEUTROPHIL # 3.4 TH/MM3 (1.8-7.7); BASOPHIL % 0.8 % (0.0-2.0); EOSINOPHIL # 0.1 TH/MM3 (0-0.4); EOSINOPHIL % 2.7 % (0.0-4.0); HEMATOCRIT 39.6 % (35.0-46.0); LYMPH % 22.3 % (9.0-44.0); LYMPHOCYTE # 1.1 TH/MM3 (1.0-4.8); MEAN CELL VOLUME 84.3 FL (80.0-100.0); MEAN CORPUSCULAR HEMOGLOBIN 27.7 PG (27.0-34.0); MEAN CORPUSCULAR HGB CONC 32.9 % (32.0-36.0); MEAN PLATELET VOLUME 7.1 FL (7.0-11.0); MONOCYTE # 0.3 TH/MM3 (0-0.9); NEUT % 68.2 % (16.0-70.0); PLATELET COUNT 338 TH/MM3 (150-450); RED CELL DISTRIBUTION WIDTH 13.6 % (11.6-17.2); WHITE BLOOD COUNT 4.9 TH/MM3 (4.0-11.0)
[2017-11-05 12:05] LABS: BILIRUBIN, URINE NEG (NEG); BLOOD, URINE NEG (NEG); GLUCOSE,URINE NEG (NEG); KETONE, URINE NEG (NEG); NITRITE,URINE NEG (NEG); URINE LEUKOCYTE ESTERASE TRACE (NEG)
[2017-11-05 12:16] LABS: CHLORIDE 105 MEQ/L (98-107); SODIUM (NA) 139 MEQ/L (136-145)
[2017-11-05 12:18] LABS: SQUAMOUS EPITHELIAL CELL URINE 0-5 /hpf (0-5); URINE COLOR YELLOW (YELLW/STRAW)
[2017-11-05 12:19] LABS: CALCIUM 8.9 MG/DL (8.5-10.1); WBC, URINE 0-2 /hpf (0-5)
[2017-11-05 12:20] LABS: ALBUMIN 3.7 GM/DL (3.4-5.0); BICARBONATE 26.9 MEQ/L (21.0-32.0); BLOOD UREA NITROGEN 10 MG/DL (7-18); GLUCOSE,RANDOM 165 MG/DL (74-106)
[2017-11-05 12:22] LABS: ALT (GPT) 24 U/L (10-53); AST (GOT) 16 U/L (15-37); CREATININE 0.71 MG/DL (0.50-1.00); GLOMERULAR FILTRATION RATE 80 ML/MIN (>89)
[2017-11-05 12:24] LABS: TOTAL BILIRUBIN ADULT 0.3 MG/DL (0.2-1.0); TOTAL PROTEIN 7.3 GM/DL (6.4-8.2)
[2017-11-05 12:25] LABS: ALKALINE PHOSPHATASE 85 U/L (45-117)
[2017-11-05] MEDS ORDERED: IOHEXOL 350 MG/ML 10 ML VIAL (for RAD DIAG) IVCONTRAST ONE (13:00)
--- NOTE | 2017-11-05 13:15 | RADRPT ---
EXAM DATE/TIME: 11/05/2017 12:49 [facility] COMPARISON: CT ABDOMEN & PELVIS W CONTRAST, October 24, 2017, 11:59. INDICATIONS : Left sided abdominal and back pain. IV CONTRAST: 100 cc Omnipaque 350 (iohexol) IV ORAL CONTRAST: No oral contrast ingested. RADIATION DOSE: 8.99 CTDIvol (mGy) MEDICAL HISTORY : AAA, See recent CT SURGICAL HISTORY : Colon resection. Cholecystectomy.Hysterectomy.Breast reduction, lumbar fusion ENCOUNTER: Initial ACUITY: 1 day PAIN SCALE: 6/10 LOCATION: Left flank TECHNIQUE: Volumetric scanning of the abdomen and pelvis was performed. Using automated exposure control and ad justment of the mA and/or kV according to patient size, radiation dose was kept as low as reasonably achievable to obtain optimal diagnostic quality images. DICOM format image data is available electro nically for review and comparison. FINDINGS: LOWER LUNGS: The visualized lower lungs are clear. LIVER: Homogeneous density without lesion. There is no dilation of the biliary tree. No gallbladder, surgi brando removed.. SPLEEN: Normal size without lesion. PANCREAS: Within normal limits. KIDNEYS: Normal in size and shape. There is no mass, stone or hydronephrosis. ADRENAL GLANDS: Within normal limits. VASCULAR: Mild aneurysmal dilatation of the infrarenal abdominal aorta 3 cm. No significant changes. BOWEL/MESENTERY: The stomach, small bowel, and colon demonstrate no acute abnormality. There is no free intraperitone al air or fluid. No inflammatory changes. The appendix is unremarkable. The surgical anastomosis invo lving the sigmoid colon is grossly intact. ABDOMINAL WALL: Within normal limits. RETROPERITONEUM: There is no lymphadenopathy. BLADDER: No wall thickening or mass. REPRODUCTIVE: Within normal limits. INGUINAL: There is no lymphadenopathy or hernia. MUSCULOSKELETAL: Bony degenerative changes. Evidence of previous lumbar spinal surgery and fusion. No significant changes compared to the prior study. CONCLUSION: 1. Stable mild aneurysmal dilatation of the mid abdominal aorta at 3 cm. 2. Status post cholecystectomy. 3. No acute pathology. Zacarias Tarango MD on November 05, 2017 at 13:11 Board Certified Radiologist. This report was verified electronically.
[2017-11-05 13:40] VITALS: BP 164/79; PULSE 68; RESP 14; O2SAT 98
== END 2017-11-05 13:56 | disposition home or self-care (01) ==
LOC: PHED 09:40
DX: M54.6 Pain in thoracic spine (principal); R19.7 Diarrhea, unspecified; E11.9 Type 2 diabetes mellitus without complications; E78.00 Pure hypercholesterolemia, unspecified; F32.9 Major depressive disorder, single episode, unspecified; Z86.73 Personal history of transient ischemic attack (TIA), and cerebral infarction without residual deficits; Z87.891 Personal history of nicotine dependence; Z79.899 Other long term (current) drug therapy
CPT/HCPCS: 74177; 80053; 81001; 83605; 83690; 85025; 96372; 99284; J0500; Q9967

== ENCOUNTER 2018-02-18 07:58 | Emergency (ER) | payer OTHER ==
[~2018-02-18] VITALS: Ht 154.9 cm; Wt 64.5 kg
[~2018-02-18 07:58] MED LIST changes: -CIPR-9 PO; -HYDR-3516 PO; -METR-1 PO
[2018-02-18 08:02] VITALS: BP 108/56; PULSE 120; RESP 16; TEMP 99.6; O2SAT 94
[2018-02-18] MEDS ORDERED: VITA1000 PO (08:15)
[2018-02-18] MEDS ORDERED: PROCHLORPERAZINE INJ 10 MG/2 ML VIAL IV PUSH ONE (08:45)
[2018-02-18] MEDS ORDERED: KETOROLAC TROMETHAMINE 30 MG/ML (IVP) VIAL IV PUSH ONE (08:45)
[2018-02-18] MEDS ORDERED: diphenhydrAMINE HCL 50 MG/ML VIAL IV PUSH ONE (08:45)
--- NOTE | 2018-02-18 09:31 | PD ---
HPI . Diffuse pain Chief Complaint: Pain: Acute or Chronic Time Seen by Provider: 08:22 Travel History International Travel<30 days: No Contact w/Intl Traveler<30days: No Traveled to known affect area: No History of Present Illness HPI Patient presents with the acute onset of posterior head pain, rib pain, low back pain and left leg pain. It started after she lifted something heavy last night. Pain is rated 7/10. She has not taken anything for prior to presentation. She describes her headache as pounding. Her rib pain and back pain is a soreness. It is exacerbated by moving. In addition, the patient reports frequency of urination which started last night. PFSH Past Medical History Hx Anticoagulant Therapy: Yes (PLAVIX) Arthritis: Yes Asthma: No Blood Disorders: No Depression: Yes Heart Rhythm Problems: No Cancer: No Cardiac Catheterization: No Cardiovascular Problems: Yes (SMALL AAA) High Cholesterol: Yes Chemotherapy: No Congestive Heart Failure: No COPD: No Cerebrovascular Accident: Yes (TIA X4) Diabetes: Yes (TYPE II) Patient Takes Glucophage: No Diminished Hearing: No Diverticulitis: Yes Endocrine: No Gastrointestinal Disorders: No GERD: Yes Genitourinary: No Hepatitis: No Hiatal Hernia: No Heparin Induced Thrombocytopen: No Hypertension: No Immune Disorder: No Implanted Vascular Access Dvce: No Musculoskeletal: Yes (CHRONIC BACK PAIN) Neurologic: No Psychiatric: No Reproductive: No Respiratory: No Immunizations Current: Yes Myocardial Infarction: No Radiation Therapy: No Thyroid Disease: No PNEUMOCCOCAL Vaccine (Year): 2 Menopausal: Yes : 4 Para: 4 Past Surgical History AICD: No Appendectomy: Yes (1986) Body Medical Devices: rods and plates in back Cholecystectomy: Yes Coronary Artery Bypass Graft: No Eye Surgery: Yes (UMBERTO. CAT.) Gynecologic Surgery: Yes (HYSTERECTOMY) Hysterectomy: Yes Joint Replacement: No Pacemaker: No Other Surgery: Yes (BREAST REDUCTION) Social History Alcohol Use: No Tobacco Use: No (quit 2 years ago after 60 yr pack hx) Substance Use: No Allergies-Medications (Allergen,Severity, Reaction): Coded Allergies: bee venom protein (honey bee) (Unverified Allergy, Severe, SWELLING, CARRIES EPIPEN, 02/18/18) Reported Meds & Prescriptions Reported Meds & Active Scripts Active Reported Vitamin D-1000 (Cholecalciferol) 1,000 Unit Tab 2,000 Units PO DAILY Atorvastatin (Atorvastatin Calcium) 40 Mg Tab 40 Mg PO HS Glyburide 2.5 Mg Tab 2.5 Mg PO DAILY Take with meals at the same time each day Ambien (Zolpidem Tartrate) 10 Mg Tab 10 Mg PO HS PRN Potassium Chloride ER (Potassium Chloride) 10 Meq Cap 10 Meq PO DAILY Gabapentin 300 Mg Cap 300 Mg PO HS Prilosec (Omeprazole Magnesium) 20 Mg Tab 20 Mg PO DAILY Plavix (Clopidogrel Bisulfate) 75 Mg Tab 75 Mg PO DAILY Review of Systems Except as stated in HPI: all other systems reviewed are Neg Physical Exam Narrative GENERAL: Awake and alert and in no acute distress. SKIN: warm/dry. Normal color and turgor. HEAD: Normocephalic. Atraumatic. Positive occipital scalp tenderness. EYES: Pupils equal and round. Extraocular movements are intact. ENT: Mucous membranes pink and moist. NECK: Supple. Diffuse paraspinous muscle tenderness. CARDIOVASCULAR: Regular rate and rhythm. Heart sounds are normal. RESPIRATORY: No accessory muscle use. Clear to auscultation. Breath sounds equal bilaterally. Bilateral lower rib cage tenderness. GASTROINTESTINAL: Abdomen soft. Nontender. Bowel sounds present. Nondistended. MUSCULOSKELETAL: No obvious deformities. Normal muscle tone. Diffuse back tenderness. NEUROLOGICAL: Awake and alert. No obvious cranial nerve deficits. Motor grossly within normal limits. Normal speech. Ambulatory without difficulty. PSYCHIATRIC: Appropriate mood and affect; insight and judgment normal. Data Data Last Documented VS Vital Signs Date Time Temp Pulse Resp B/P (MAP) Pulse Ox O2 Delivery O2 Flow Rate FiO2 02/18/18 10:06 16 02/18/18 08:02 99.6 120 108/56 (73) 94 Orders Orders Urinalysis - C+S If Indicated (02/18/18 08:32) ^ Saline Lock (02/18/18 08:32) Diphenhydramine Inj (Benadryl Inj) (02/18/18 08:45) Prochlorperazine Inj (Compazine Inj) (02/18/18 08:45) Ketorolac Inj (Toradol Inj) (02/18/18 08:45) Cath For Specimen (02/18/18 09:52) Urine Culture (02/18/18 10:13) Labs Laboratory Tests Test 02/18/18 10:13 Urine Collection Type CLEAN CATCH Urine Color YELLOW Urine Turbidity CLOUDY Urine pH 5.5 Urine Specific [place] 1.010 Urine Protein TRACE mg/dL Urine Glucose (UA) NEG mg/dL Urine Ketones NEG mg/dL Urine Occult Blood TRACE Urine Nitrite POS Urine Bilirubin NEG Urine Urobilinogen 0.2 MG/DL Urine Leukocyte Esterase LARGE Urine RBC 10-14 /hpf Urine WBC 100-200 /hpf Urine WBC Clumps MOD Urine Squamous Epithelial Cells 0-5 /hpf Urine Renal Epithelial Cells 0-5 /hpf Urine Bacteria MANY /hpf Microscopic Urinalysis Comment CULTURE INDICATED MDM Medical Decision Making Medical Screen Exam Complete: Yes Emergency Medical Condition: Yes Differential Diagnosis Differential diagnosis of headache includes but is not limited to migraine, muscle contraction headache, brain tumor, brain bleed Differential diagnosis includes but is not limited to muscular low back pain, DDD, spinal stenosis, epidural abscess, sciatica, kidney infection or stone. Final differential diagnosis of urinary symptoms includes but is not limited to UTI, kidney stone, pyelonephritis, bacterial vaginosis, yeast infection, urinary retention Narrative Course This patient presents with the acute onset of headache, bilateral lower rib pain , low back pain, left leg pain and urinary frequency. All symptoms started last night after lifting something heavy. UA is pending. I am treating her headache with IV Compazine and Benadryl. The patient feels much better following the Compazine and Benadryl. UA>>large LE, 10-14 RBCs, 100-200 WBCs, mod WBC clumps, many bact She will be discharged with prescriptions for Macrobid and Pyridium for the UTI. Diagnosis Primary Impression: Headache Qualified Codes: G44.209 - Tension-type headache, unspecified, not intractable Additional Impressions: Muscle strain Urinary tract infection Qualified Codes: N30.00 - Acute cystitis without hematuria Med/Other Pt SpecificInfo: Prescription(s) given Scripts Diazepam (Valium) 5 Mg Tab 5 MG PO TID Y for muscle pain, #15 TAB 0 Refills Prov: Kelsi Jules MD 02/18/18 Phenazopyridine (Pyridium) 100 Mg Tab 200 MG PO Q8H Y for DYSURIA, #20 TAB 0 Refills Prov: Kelsi Jules MD 02/18/18 Nitrofurantoin Monohydrate Macrocrystals (Macrobid) 100 Mg Cap 100 MG PO BID for Infection for 5 Days, #10 CAP 0 Refills Prov: Kelsi Jules MD 02/18/18 Disposition: 01 DISCHARGE HOME Condition: Stable Kelsi Jules MD Feb 18, 2018 09:31
[2018-02-18 10:06] VITALS: RESP 16
[2018-02-18 10:15] LABS: BILIRUBIN, URINE NEG (NEG); BLOOD, URINE TRACE (NEG); GLUCOSE,URINE NEG (NEG); KETONE, URINE NEG (NEG); NITRITE,URINE POS (NEG); PH, URINE 5.5 (5.0-8.5); URINE COLOR YELLOW (YELLW/STRAW); URINE LEUKOCYTE ESTERASE LARGE (NEG)
[2018-02-18 10:22] LABS: BACTERIA, URINE MANY /hpf; RENAL EPITHELIAL CELLS 0-5 /hpf; SQUAMOUS EPITHELIAL CELL URINE 0-5 /hpf (0-5); WBC, URINE 100-200 /hpf (0-5); WHITE BLOOD CELL CLUMPS MOD
[2018-02-18] MEDS ORDERED: PHEN0.4T PO (10:33)
[2018-02-18] MEDS ORDERED: DIAZ5 PO (10:33)
[2018-02-18] MEDS ORDERED: MACR100C2 PO (10:33)
[2018-02-18 10:46] VITALS: BP 122/75
== END 2018-02-18 10:48 | disposition home or self-care (01) ==
LOC: PHED 07:58
DX: G44.209 Tension-type headache, unspecified, not intractable (principal); T14.8XXA Other injury of unspecified body region, initial encounter; X50.0XXA Overexertion from strenuous movement or load, initial encounter; N30.00 Acute cystitis without hematuria; B96.1 Klebsiella pneumoniae [K. pneumoniae] as the cause of diseases classified elsewhere; B96.20 Unspecified Escherichia coli [E. coli] as the cause of diseases classified elsewhere; M54.5 Low back pain; M79.605 Pain in left leg; R07.81 Pleurodynia; G89.29 Other chronic pain; E11.9 Type 2 diabetes mellitus without complications; E78.00 Pure hypercholesterolemia, unspecified; F32.9 Major depressive disorder, single episode, unspecified; I71.4 Abdominal aortic aneurysm, without rupture; K21.9 Gastro-esophageal reflux disease without esophagitis; Z86.73 Personal history of transient ischemic attack (TIA), and cerebral infarction without residual deficits; Z87.891 Personal history of nicotine dependence
CPT/HCPCS: 81001; 87077; 87086; 87186; 96374; 96375; 99284; J0780; J1200; J1885; P9612

== ENCOUNTER 2018-02-25 06:13 | Observation (INO) | payer OTHER ==
[~2018-02-25] VITALS: Ht 154.9 cm; Wt 65.0 kg
[2018-02-25] VITALS (7 sets, daily range): BP systolic 86–145; BP diastolic 50–73; PULSE 92–117; RESP 17–20; TEMP 97.7–98.9; O2SAT 90–99
[~2018-02-25 06:13] MED LIST changes: +DIAZ5 PO; +MACR100C2 PO; +PHEN0.4T PO; +VITA1000 PO
[2018-02-25] MEDS ORDERED: SODIUM CHLORIDE 0.9% FLUSH 10 ML FLUSH IVF PRN (06:30)
[2018-02-25 06:56] LABS: AUTOMATED NEUTROPHIL # 9.5 TH/MM3 (1.8-7.7); BASOPHIL % 0.4 % (0.0-2.0); EOSINOPHIL # 0.3 TH/MM3 (0-0.4); EOSINOPHIL % 2.8 % (0.0-4.0); HEMOGLOBIN 12.5 GM/DL (11.6-15.3); LYMPH % 10.2 % (9.0-44.0); LYMPHOCYTE # 1.2 TH/MM3 (1.0-4.8); MEAN CELL VOLUME 82.9 FL (80.0-100.0); MEAN CORPUSCULAR HEMOGLOBIN 27.4 PG (27.0-34.0); MEAN PLATELET VOLUME 7.3 FL (7.0-11.0); MONO % 5.3 % (0.0-8.0); MONOCYTE # 0.6 TH/MM3 (0-0.9); NEUT % 81.3 % (16.0-70.0); PLATELET COUNT 413 TH/MM3 (150-450); RED BLOOD COUNT 4.59 MIL/MM3 (4.00-5.30); WHITE BLOOD COUNT 11.6 TH/MM3 (4.0-11.0)
--- NOTE | 2018-02-25 06:59 | RADRPT ---
EXAM DATE: 02/25/2018 6:33 AM EDT AGE/SEX: 77 years / Female INDICATIONS: Chest pain starting today CLINICAL DATA: This is the patient's initial encounter. Patient reports that signs and symptoms have been present for 1 day and indicates a pain score of 5/10. MEDICAL/SURGICAL HISTORY: None. None. COMPARISON: [facility] [place], CHEST SINGLE AP, 06/08/2017. . FINDINGS: A single AP view of the chest demonstrates the lungs to be symmetrically aerated without evidence of mass, infiltrate or effusion. The cardiomediastinal contours are unremarkable. Osseous structures a re intact. CONCLUSION: No acute cardiopulmonary disease Electronically signed by: Scott Flores MD 02/25/2018 6:57 AM EDT
[2018-02-25] MEDS ORDERED: NITROGLYCERIN 0.4 MG SL 25 TABS/BTL SL ONE (07:00)
[2018-02-25] MEDS ORDERED: ASPIRIN 81 MG CHEW TAB CHEW ONE (07:00)
[2018-02-25 07:01] LABS: ALBUMIN 3.5 GM/DL (3.4-5.0); AST (GOT) 9 U/L (15-37); BICARBONATE 24.1 MEQ/L (21.0-32.0); BLOOD UREA NITROGEN 13 MG/DL (7-18); CALCIUM 8.8 MG/DL (8.5-10.1); CHLORIDE 103 MEQ/L (98-107); CREATININE 0.69 MG/DL (0.50-1.00); GLOMERULAR FILTRATION RATE 83 ML/MIN (>89); GLUCOSE,RANDOM 156 MG/DL (74-106); MAGNESIUM 1.7 MG/DL (1.5-2.5); SODIUM (NA) 139 MEQ/L (136-145)
[2018-02-25 07:02] LABS: ALT (GPT) 14 U/L (10-53)
--- NOTE | 2018-02-25 07:04 | PD ---
HPI Chief Complaint: Chest Pain Time Seen by Provider: 06:15 Travel History International Travel<30 days: No Contact w/Intl Traveler<30days: No Traveled to known affect area: No History of Present Illness HPI Patient 77-year-old female presents emergency department for evaluation of chest pain left side of her chest radiating down her left arm accompanied with some mild shortness of breath that awoke her from a sound sleep about 02 100 this morning. Patient states never had a history of heart problems or lung problems was prescribed nitroglycerin in the past because she had seen a tissue rewinder because of an abnormal EKG. States she had a stress test over a year ago negative. She has never had a cardiac catheterization. States the pain is moderate, radiation, context, associated signs symptoms as above. PFSH Past Medical History Hx Anticoagulant Therapy: Yes (PLAVIX) Arthritis: Yes Asthma: No Blood Disorders: No Depression: Yes Heart Rhythm Problems: No Cancer: No Cardiac Catheterization: No Cardiovascular Problems: Yes (SMALL AAA) High Cholesterol: Yes Chemotherapy: No Congestive Heart Failure: No COPD: No Cerebrovascular Accident: Yes (TIA X4) Diabetes: Yes (TYPE II) Patient Takes Glucophage: No Diminished Hearing: No Diverticulitis: Yes Endocrine: No Gastrointestinal Disorders: No GERD: Yes Genitourinary: No Hepatitis: No Hiatal Hernia: No Heparin Induced Thrombocytopen: No Hypertension: No Immune Disorder: No Implanted Vascular Access Dvce: No Musculoskeletal: Yes (CHRONIC BACK PAIN) Neurologic: No Psychiatric: No Reproductive: No Respiratory: No Immunizations Current: Yes Myocardial Infarction: No Radiation Therapy: No Thyroid Disease: No PNEUMOCCOCAL Vaccine (Year): 2 Menopausal: Yes : 4 Para: 4 Past Surgical History AICD: No Appendectomy: Yes (1986) Body Medical Devices: rods and plates in back Cholecystectomy: Yes Coronary Artery Bypass Graft: No Eye Surgery: Yes (UMBERTO. CAT.) Gynecologic Surgery: Yes (HYSTERECTOMY) Hysterectomy: Yes Joint Replacement: No Pacemaker: No Other Surgery: Yes (BREAST REDUCTION) Social History Alcohol Use: No Tobacco Use: No (quit 2 years ago after 60 yr pack hx) Substance Use: No Allergies-Medications (Allergen,Severity, Reaction): Coded Allergies: bee venom protein (honey bee) (Unverified Allergy, Severe, SWELLING, CARRIES EPIPEN, 02/25/18) Reported Meds & Prescriptions Reported Meds & Active Scripts Active Valium (Diazepam) 5 Mg Tab 5 Mg PO TID PRN Reported Vitamin D-1000 (Cholecalciferol) 1,000 Unit Tab 2,000 Units PO DAILY Atorvastatin (Atorvastatin Calcium) 40 Mg Tab 40 Mg PO HS Glyburide 2.5 Mg Tab 2.5 Mg PO DAILY Take with meals at the same time each day Ambien (Zolpidem Tartrate) 10 Mg Tab 10 Mg PO HS PRN Potassium Chloride ER (Potassium Chloride) 10 Meq Cap 10 Meq PO DAILY Gabapentin 300 Mg Cap 300 Mg PO HS Prilosec (Omeprazole Magnesium) 20 Mg Tab 20 Mg PO DAILY Plavix (Clopidogrel Bisulfate) 75 Mg Tab 75 Mg PO DAILY Review of Systems Except as stated in HPI: all other systems reviewed are Neg Physical Exam Narrative GENERAL: Well-developed well-nourished no obvious distress SKIN: Focused skin assessment warm/dry. HEAD: Atraumatic. Normocephalic. EYES: Pupils equal and round. No scleral icterus. No injection or drainage. ENT: No nasal bleeding or discharge. Mucous membranes pink and moist. NECK: Trachea midline. No JVD. CARDIOVASCULAR: Regular rhythm with tachycardia. No murmur appreciated. 2+ bilateral equal pulses in all 4 extremities no murmurs gallops or rubs. RESPIRATORY: No accessory muscle use. Clear to auscultation. Breath sounds equal bilaterally. GASTROINTESTINAL: Abdomen soft, non-tender, nondistended. Hepatic and splenic margins not palpable. MUSCULOSKELETAL: No obvious deformities. No clubbing. No cyanosis. No edema. Homans sign negative. NEUROLOGICAL: Awake and alert. No obvious cranial nerve deficits. Motor grossly within normal limits. Normal speech. PSYCHIATRIC: Appropriate mood and affect; insight and judgment normal. Data Data Last Documented VS Vital Signs Date Time Temp Pulse Resp B/P (MAP) Pulse Ox O2 Delivery O2 Flow Rate FiO2 02/25/18 07:13 105 18 99 Nasal Cannula 2.00 02/25/18 07:13 97.8 124/61 (82) Orders Orders Ckmb (Isoenzyme) Profile (02/25/18 06:17) Complete Blood Count With Diff (02/25/18 06:17) Comprehensive Metabolic Panel (02/25/18 06:17) Magnesium (Mg) (02/25/18 06:17) Prothrombin Time / Inr (Pt) (02/25/18 06:17) Act Partial Throm Time (Ptt) (02/25/18 06:17) Troponin I (02/25/18 06:17) Lipase (02/25/18 06:17) Chest, Single Ap (02/25/18 06:17) Ecg Monitoring (02/25/18 06:17) Bilateral Bp Monitoring (02/25/18 06:17) Iv Access Insert/Monitor (02/25/18 06:17) Oximetry (02/25/18 06:17) Oxygen Administration (02/25/18 06:17) Sodium Chloride 0.9% Flush (Ns Flush) (02/25/18 06:30) Ct Pulmonary Angiogram (02/25/18 ) Aspirin Chew (Aspirin Chew) (02/25/18 07:00) Nitroglycerin Sl (Nitrostat Sl) (02/25/18 07:00) Labs Laboratory Tests Test 02/25/18 06:25 White Blood Count 11.6 TH/MM3 Red Blood Count 4.59 MIL/MM3 Hemoglobin 12.5 GM/DL Hematocrit 38.0 % Mean Corpuscular Volume 82.9 FL Mean Corpuscular Hemoglobin 27.4 PG Mean Corpuscular Hemoglobin Concent 33.0 % Red Cell Distribution Width 14.0 % Platelet Count 413 TH/MM3 Mean Platelet Volume 7.3 FL Neutrophils (%) (Auto) 81.3 % Lymphocytes (%) (Auto) 10.2 % Monocytes (%) (Auto) 5.3 % Eosinophils (%) (Auto) 2.8 % Basophils (%) (Auto) 0.4 % Neutrophils # (Auto) 9.5 TH/MM3 Lymphocytes # (Auto) 1.2 TH/MM3 Monocytes # (Auto) 0.6 TH/MM3 Eosinophils # (Auto) 0.3 TH/MM3 Basophils # (Auto) 0.0 TH/MM3 CBC Comment DIFF FINAL Differential Comment Prothrombin Time 10.0 SEC Prothromb Time International Ratio 1.0 RATIO Activated Partial Thromboplast Time 25.2 SEC Blood Urea Nitrogen 13 MG/DL Creatinine 0.69 MG/DL Random Glucose 156 MG/DL Total Protein 7.3 GM/DL Albumin 3.5 GM/DL Calcium Level 8.8 MG/DL Magnesium Level 1.7 MG/DL Alkaline Phosphatase 107 U/L Aspartate Amino Transf (AST/SGOT) 9 U/L Alanine Aminotransferase (ALT/SGPT) 14 U/L Total Bilirubin 0.3 MG/DL Sodium Level 139 MEQ/L Potassium Level 3.6 MEQ/L Chloride Level 103 MEQ/L Carbon Dioxide Level 24.1 MEQ/L Anion Gap 12 MEQ/L Estimat Glomerular Filtration Rate 83 ML/MIN Total Creatine Kinase 65 U/L Troponin I LESS THAN 0.02 NG/ML Lipase 205 U/L MDM Medical Decision Making Medical Screen Exam Complete: Yes Emergency Medical Condition: Yes Differential Diagnosis ACS, PR, PE, pneumonia, GERD, reflux. Narrative Course Patient room to the emergency department, she appears well in no obvious distress, EKG showed tachycardia without any evidence of active ischemia. Patient had basic labs, given her shortness of breath tachycardia CT PE protocol was added, discussed with Dr. Parr at 07 100 shift change to follow-up the workup and disposition the patient properly. Ryne Cruz MD Feb 25, 2018 07:04
[2018-02-25 07:06] LABS: ALKALINE PHOSPHATASE 107 U/L (45-117); TOTAL BILIRUBIN ADULT 0.3 MG/DL (0.2-1.0); TOTAL PROTEIN 7.3 GM/DL (6.4-8.2); TROPONIN I LESS THAN 0.02 NG/ML (0.02-0.05)
[2018-02-25] MEDS ORDERED: IOHEXOL 350 MG/ML 10 ML VIAL (for RAD DIAG) IVCONTRAST ONE (07:42)
--- NOTE | 2018-02-25 07:54 | RADRPT ---
EXAM DATE: 02/25/2018 7:46 AM EDT AGE/SEX: 77 years / Female INDICATIONS: Shortness of breath. CLINICAL DATA: This is the patient's initial encounter. Patient reports that signs and symptoms have been present for 1 day and indicates a pain score of 0/10. MEDICAL/SURGICAL HISTORY: Stroke. Aneurysm, abdominal. Diabetes. Fusion, lumbar. Hysterectomy. RADIATION DOSE: 14.77 CTDI (mGy) COMPARISON: No prior exams available for comparison. TECHNIQUE: Volumetric scanning was performed using a multi-row detector CT scanner during bolus infu bobo of 80 ml Omnipaque 350 (iohexol) nonionic water-soluble contrast as a single exam dose. The hamzah a was post processed with a variety of visualization algorithms including full volume maximum intensi ty projection and sliding thin slab reformation. Using automated exposure control and adjustment of the mA and/or kV according to patient size, radiation dose was kept as low as reasonably achievable t o obtain optimal diagnostic quality images. FINDINGS: Pulmonary arteries: No filling defect is identified through the segmental and most of the subsegmenta l level pulmonary arteries. Lungs: No consolidation or pneumothorax. There is mild to moderate centrilobular and paraseptal emp hysema in the upper lobes. Atelectasis is present in the inferior left upper lobe and dependently at both lung bases. Mediastinum: The heart and great vessels demonstrate no acute abnormality. No lymphadenopathy is pre sent. There is coronary artery calcification and atherosclerotic disease of the aorta. Pleurae: No pleural effusion or pleural thickening. Axillae: No lymphadenopathy. Musculoskeletal: The bones and soft tissues demonstrate no acute abnormality. There are degenerativ e changes of the thoracic spine. Miscellaneous: The visualized upper abdominal structures demonstrate no acute abnormality. A small hiatal hernia is present. CONCLUSION: 1. No PE is identified. Additionally, no acute abnormality is identified to explain the patient's sh ortness of breath. 2. Moderate emphysema with mild atelectasis at the lung bases. 3. Nonacute findings include coronary artery calcification, moderate atherosclerotic disease, and sm all hiatal hernia. Electronically signed by: Paulino Souza MD 02/25/2018 7:53 AM EDT
--- NOTE | 2018-02-25 08:03 | PD ---
Physical Exam Date Seen by Provider: Feb 25, 2018 Time Seen by Provider: 07:00 Narrative Patient signed out to me by Dr. Cruz, please see Dr. Cruz's note for further details. Initial EKG, chest x-ray, and lab work were all unremarkable. CTA was pending. It was negative for any PE. At this point, as per discussion with Dr. Cruz, my plan would be to admit the patient to chest pain center for further evaluation of her chest pains. EKG shows sinus tachycardia rate of 115 bpm. No signs of acute ST elevations or depressions Laboratory Tests Test 02/25/18 06:25 White Blood Count 11.6 TH/MM3 (4.0-11.0) Neutrophils (%) (Auto) 81.3 % (16.0-70.0) Neutrophils # (Auto) 9.5 TH/MM3 (1.8-7.7) Random Glucose 156 MG/DL (74-106) Aspartate Amino Transf (AST/SGOT) 9 U/L (15-37) Estimat Glomerular Filtration Rate 83 ML/MIN (>89) Troponin I LESS THAN 0.02 NG/ML Last 24 hours Impressions Chest X-Ray 02/25/18 0617 Signed Impressions: CONCLUSION: No acute cardiopulmonary disease CT Angiography 02/25/18 0000 Signed Impressions: CONCLUSION: 1. No PE is identified. Additionally, no acute abnormality is identified to ex plain the patient's shortness of breath. 2. Moderate emphysema with mild atelectasis at the lung bases. 3. Nonacute findings include coronary artery calcification, moderate atheroscl erotic disease, and small hiatal hernia. Data Data Last Documented VS Vital Signs Date Time Temp Pulse Resp B/P (MAP) Pulse Ox O2 Delivery O2 Flow Rate FiO2 02/25/18 07:13 97.8 104 20 116/61 (79) 95 Nasal Cannula 2.00 Orders Orders Ckmb (Isoenzyme) Profile (02/25/18 06:17) Complete Blood Count With Diff (02/25/18 06:17) Comprehensive Metabolic Panel (02/25/18 06:17) Magnesium (Mg) (02/25/18 06:17) Prothrombin Time / Inr (Pt) (02/25/18 06:17) Act Partial Throm Time (Ptt) (02/25/18 06:17) Troponin I (02/25/18 06:17) Lipase (02/25/18 06:17) Chest, Single Ap (02/25/18 06:17) Ecg Monitoring (02/25/18 06:17) Bilateral Bp Monitoring (02/25/18 06:17) Iv Access Insert/Monitor (02/25/18 06:17) Oximetry (02/25/18 06:17) Oxygen Administration (02/25/18 06:17) Sodium Chloride 0.9% Flush (Ns Flush) (02/25/18 06:30) Ct Pulmonary Angiogram (02/25/18 ) Aspirin Chew (Aspirin Chew) (02/25/18 07:00) Nitroglycerin Sl (Nitrostat Sl) (02/25/18 07:00) Iohexol 350 Inj (Omnipaque 350 Inj) (02/25/18 07:42) Labs Laboratory Tests Test 02/25/18 06:25 White Blood Count 11.6 TH/MM3 Red Blood Count 4.59 MIL/MM3 Hemoglobin 12.5 GM/DL Hematocrit 38.0 % Mean Corpuscular Volume 82.9 FL Mean Corpuscular Hemoglobin 27.4 PG Mean Corpuscular Hemoglobin Concent 33.0 % Red Cell Distribution Width 14.0 % Platelet Count 413 TH/MM3 Mean Platelet Volume 7.3 FL Neutrophils (%) (Auto) 81.3 % Lymphocytes (%) (Auto) 10.2 % Monocytes (%) (Auto) 5.3 % Eosinophils (%) (Auto) 2.8 % Basophils (%) (Auto) 0.4 % Neutrophils # (Auto) 9.5 TH/MM3 Lymphocytes # (Auto) 1.2 TH/MM3 Monocytes # (Auto) 0.6 TH/MM3 Eosinophils # (Auto) 0.3 TH/MM3 Basophils # (Auto) 0.0 TH/MM3 CBC Comment DIFF FINAL Differential Comment Prothrombin Time 10.0 SEC Prothromb Time International Ratio 1.0 RATIO Activated Partial Thromboplast Time 25.2 SEC Blood Urea Nitrogen 13 MG/DL Creatinine 0.69 MG/DL Random Glucose 156 MG/DL Total Protein 7.3 GM/DL Albumin 3.5 GM/DL Calcium Level 8.8 MG/DL Magnesium Level 1.7 MG/DL Alkaline Phosphatase 107 U/L Aspartate Amino Transf (AST/SGOT) 9 U/L Alanine Aminotransferase (ALT/SGPT) 14 U/L Total Bilirubin 0.3 MG/DL Sodium Level 139 MEQ/L Potassium Level 3.6 MEQ/L Chloride Level 103 MEQ/L Carbon Dioxide Level 24.1 MEQ/L Anion Gap 12 MEQ/L Estimat Glomerular Filtration Rate 83 ML/MIN Total Creatine Kinase 65 U/L Troponin I LESS THAN 0.02 NG/ML Lipase 205 U/L MDM Medical Record Reviewed: Yes Supervised Visit with THAD: Yes Diagnosis Primary Impression: Chest pain Admitting Information Admitting Physician Requests: it Renata Bedolla MD Feb 25, 2018 08:03
[2018-02-25] MEDS ORDERED: NITROGLYCERIN 0.4 MG SL 25 TABS/BTL SL PRN (08:30)
[2018-02-25] MEDS ORDERED: SODIUM CHLORIDE 0.9% FLUSH 10 ML FLUSH IV FLUSH PRN (08:30)
[2018-02-25] MEDS ORDERED: ACETAMINOPHEN 500 MG CPLT PO PRN (08:30)
[2018-02-25] MEDS ORDERED: SODIUM CHLORIDE 0.9% FLUSH 10 ML FLUSH IV FLUSH SCH (09:00)
--- NOTE | 2018-02-25 09:35 | HHI.HP ---
HPI Service Chest pain center Primary Care Physician MD Dr. Stanton Melchor Chief Complaint Fast heartbeat and sharp chest pain History of Present Illness 77-year-old lady with a complex medical history as noted over the last 3-4 weeks that she is having episodes of shortness of breath associated with a fast heart rate. When her heart rate goes up she begins to get some discomfort in her left lateral chest which is described as a sudden sharp pain that quickly reduces to a dull pain severity is 4 out of 10 and it lasts from about 1-3 minutes. These episodes are generally precipitated when she becomes aggravated or upset but there are no relieving factors. She has been having 2-3 a week over the last 4 weeks. She also complains of fairly severe headaches associated with these episodes. She has had similar problems in the past was evaluated by Dr. Black including a nuclear stress test and somewhat distant past and then another one year ago both of which were negative she also underwent Holter monitoring a year ago and that too was negative. She is pain- free free and comfortable at this time Past Family Social History Allergies: Coded Allergies: bee venom protein (honey bee) (Unverified Allergy, Severe, SWELLING, CARRIES EPIPEN, 02/25/18) Past Medical History History of several TIAs in 2008 Arthritis Anxiety depression Abdominal aortic aneurysm (3 cm) Hyperlipidemia Diabetes Diverticulitis UTIs GERD Past Surgical History Appendectomy Back surgery with laminectomy Cholecystectomy Bilateral cataracts Hysterectomy Bowel resection with Dr. Olson Breast reduction Reported Medications Reported Meds & Active Scripts Active Valium (Diazepam) 5 Mg Tab 5 Mg PO TID PRN Reported Vitamin D-1000 (Cholecalciferol) 1,000 Unit Tab 2,000 Units PO DAILY Atorvastatin (Atorvastatin Calcium) 40 Mg Tab 40 Mg PO HS Glyburide 2.5 Mg Tab 2.5 Mg PO DAILY Take with meals at the same time each day Ambien (Zolpidem Tartrate) 10 Mg Tab 10 Mg PO HS PRN Potassium Chloride ER (Potassium Chloride) 10 Meq Cap 10 Meq PO DAILY Gabapentin 300 Mg Cap 300 Mg PO HS Prilosec (Omeprazole Magnesium) 20 Mg Tab 20 Mg PO DAILY Plavix (Clopidogrel Bisulfate) 75 Mg Tab 75 Mg PO DAILY Active Ordered Medications Current Medications Medications (Trade) Dose Ordered Sig/[place] Route Start Time Stop Time Status Last Admin (NS Flush) 2 ml UNSCH PRN IV FLUSH 02/25/18 08:30 (NS Flush) 2 ml BID IV FLUSH 02/25/18 09:00 (Tylenol) 500 mg Q4H PRN PO 02/25/18 08:30 (Nitrostat Sl) 0.4 mg Q5M PRN SL 02/25/18 08:30 (Aspirin) 325 mg DAILY PO 02/26/18 09:00 Family History Father age 78 of multiple CVAs Mother age 80 of complications from rheumatoid arthritis Social History Denies alcohol No tobacco but had a [id number] history quitting 2 years ago lives with her Physical Exam Vital Signs Vital Signs Date Time Temp Pulse Resp B/P (MAP) Pulse Ox O2 Delivery O2 Flow Rate FiO2 02/25/18 08:30 97.7 87 18 120/67 (84) 99 Nasal Cannula 2.00 02/25/18 08:00 98.5 92 17 113/57 (75) 94 02/25/18 07:17 18 02/25/18 07:13 97.8 104 20 116/61 (79) 95 Nasal Cannula 2.00 02/25/18 07:13 99 Nasal Cannula 2.00 02/25/18 07:13 105 18 99 Nasal Cannula 2.00 02/25/18 07:13 97.8 105 18 124/61 (82) 99 Nasal Cannula 2.00 109/58 (75) 02/25/18 06:30 97 Nasal Cannula 2.00 02/25/18 06:16 98.9 117 18 145/73 (97) 90 Physical Exam Well-nourished well-developed woman in no distress at the time of exam Head normocephalic atraumatic Eyes pupils are somewhat distant equal secondary to bilateral cataracts surgery. Extraocular movements are intact Mouth mucous membranes moist and well papillated edentulous no lesions Neck supple no JVD masses nodes or bruits Chest significantly diminished breath sounds but no rales wheezes or rhonchi Cardiovascular chest is exquisitely painful over the left lower lateral area where she is complaining of the recurring pain. No gallops rubs or murmurs are noted Abdomen tender left upper quadrant well-healed scar below the umbilicus but no guarding or rebound and no masses Extremities no clubbing cyanosis or edema Neurologically she is grossly intact Laboratory Laboratory Tests Test 02/25/18 06:25 White Blood Count 11.6 Red Blood Count 4.59 Hemoglobin 12.5 Hematocrit 38.0 Mean Corpuscular Volume 82.9 Mean Corpuscular Hemoglobin 27.4 Mean Corpuscular Hemoglobin Concent 33.0 Red Cell Distribution Width 14.0 Platelet Count 413 Mean Platelet Volume 7.3 Neutrophils (%) (Auto) 81.3 Lymphocytes (%) (Auto) 10.2 Monocytes (%) (Auto) 5.3 Eosinophils (%) (Auto) 2.8 Basophils (%) (Auto) 0.4 Neutrophils # (Auto) 9.5 Lymphocytes # (Auto) 1.2 Monocytes # (Auto) 0.6 Eosinophils # (Auto) 0.3 Basophils # (Auto) 0.0 CBC Comment DIFF FINAL Differential Comment Prothrombin Time 10.0 Prothromb Time International Ratio 1.0 Activated Partial Thromboplast Time 25.2 Blood Urea Nitrogen 13 Creatinine 0.69 Random Glucose 156 Total Protein 7.3 Albumin 3.5 Calcium Level 8.8 Magnesium Level 1.7 Alkaline Phosphatase 107 Aspartate Amino Transf (AST/SGOT) 9 Alanine Aminotransferase (ALT/SGPT) 14 Total Bilirubin 0.3 Sodium Level 139 Potassium Level 3.6 Chloride Level 103 Carbon Dioxide Level 24.1 Anion Gap 12 Estimat Glomerular Filtration Rate 83 Total Creatine Kinase 65 Troponin I LESS THAN 0.02 Lipase 205 Result Diagram: 02/25/1862402/25/1825 Imaging Chest x-ray shows underlying lung disease CT of the chest is negative for PE but does show some calcific changes Course Patient's pain appears to be noncardiac however she certainly does have risk factors. She had a negative nuclear scan a year ago but is felt she would be best served by repeating this at this time prior to discharge. She will be discharged to follow-up with Dr. Black unless she has a significantly positive stress test. Caprini VTE Risk Assessment Caprini VTE Risk Assessment: No/Low Risk (score <= 1) Caprini Risk Assessment Model Point Value = 1 Point Value = 2 Point Value = 3 Point Value = 5 Age 41-60 Minor surgery BMI > 25 kg/m2 Swollen legs Varicose veins or History of unexplained or recurrent spontaneous Oral contraceptives or hormone replacement Sepsis (< 1 month) Serious lung disease, including pneumonia (< 1 month) Abnormal pulmonary function Acute myocardial infarction Congestive heart failure (< 1 month) History of inflammatory bowel disease Medical patient at bed rest Age 61-74 Arthroscopic surgery Major open surgery (> 45 min) Laparoscopic surgery (> 45 min) Malignancy Confined to bed (> 72 hours) Immobilizing plaster cast Central venous access Age >= 75 History of VTE Family history of VTE Factor V Leiden Prothrombin [id number] Lupus anticoagulant Anticardiolipin antibodies Elevated serum homocysteine Heparin-induced thrombocytopenia Other congenital or acquired thrombophilia Stroke (< 1 month) Elective arthroplasty Hip, pelvis, or leg fracture Acute spinal cord injury (< 1 month) Prophylaxis Regimen Total Risk Factor Score Risk Level Prophylaxis Regimen 0-1 Low Early ambulation 2 Moderate Order ONE of the following: *Sequential Compression Device (SCD) *Heparin 5000 units SQ BID 3-4 Higher Order ONE of the following medications: *Heparin 5000 units SQ TID *Enoxaparin/Lovenox 40 mg SQ daily (WT < 150 kg, CrCl > 30 mL/min) *Enoxaparin/Lovenox 30 mg SQ daily (WT < 150 kg, CrCl > 10-29 mL/min) *Enoxaparin/Lovenox 30 mg SQ BID (WT < 150 kg, CrCl > 30 mL/min) AND/OR *Sequential Compression Device (SCD) 5 or more Highest Order ONE of the following medications: *Heparin 5000 units SQ TID (Preferred with Epidurals) *Enoxaparin/Lovenox 40 mg SQ daily (WT < 150 kg, CrCl > 30 mL/min) *Enoxaparin/Lovenox 30 mg SQ daily (WT < 150 kg, CrCl > 10-29 mL/min) *Enoxaparin/Lovenox 30 mg SQ BID (WT < 150 kg, CrCl > 30 mL/min) AND *Sequential Compression Device (SCD) Assessment and Plan Problem List: (1) Atypical chest pain ICD Codes: R07.89 - Other chest pain Status: Acute Plan: Will evaluate with a nuclear stress test prior to discharge (2) Musculoskeletal pain ICD Codes: M79.1 - Myalgia Status: Chronic (3) Diabetes mellitus ICD Codes: E11.9 - Type 2 diabetes mellitus without complications Status: Chronic (4) Diverticulitis large intestine ICD Codes: K57.32 - Diverticulitis of large intestine without perforation or abscess without bleeding Status: Chronic Travis Dubose MD Feb 25, 2018 09:35
[2018-02-25 10:30] LABS: TROPONIN I LESS THAN 0.02 NG/ML (0.02-0.05)
[2018-02-25] MEDS ORDERED: REGADENOSON INJ 0.4 MG/5 ML SYR ONE (11:37)
--- NOTE | 2018-02-25 12:42 | EKG ---
Date Performed: 02/25/2018 Time Performed: 09:49:32 PTAGE: 77 years EKG: Sinus rhythm NORMAL ECG No significant change PREVIOUS TRACING : 02/25/2018 05.14 DOCTOR: Travis Dubose Interpretating Date/Time 02/25/2018 12:42:10
--- NOTE | 2018-02-25 12:43 | EKG ---
Date Performed: 02/25/2018 Time Performed: 05:14:27 PTAGE: 77 years EKG: SINUS TACHYCARDIA ABNORMAL RHYTHM ECG No significant change PREVIOUS TRACING : 06/08/2017 08.00 DOCTOR: Travis Dubose Interpretating Date/Time 02/25/2018 12:42:31
--- NOTE | 2018-02-25 12:47 | TR ---
Date Performed: 02/25/2018 Time Performed: 11:46:11 DOCTOR: Travis Dubose DRUG LIST: CLINICAL HISTORY: CHEST PAIN REASON FOR TEST: REASON FOR ENDING: OBSERVATION: CONCLUSION: Lexiscan stress test was performed under standard four minute protocol. Radionuclide was injected one minute prior to ending the test. No electrocardiographic abormalities were present to suggest ischemia. Nuclear imaging and interpretation are pending. COMMENTS:
--- NOTE | 2018-02-25 15:53 | RADRPT ---
EXAM DATE: 02/25/2018 2:12 PM EDT AGE/SEX: 77 years / Female INDICATIONS:Angina. . Left sided chest pain with shortness of breath for four weeks. CLINICAL DATA: This is the patient's initial encounter. Patient reports that signs and symptoms have been present for 1 month and indicates a pain score of 4/10. MEDICAL/SURGICAL HISTORY: Diabetes mellitus type II. Hypertension. Gastroesophageal reflux di sease. Cholecystectomy. Hysterectomy. Appendectomy. COMPARISON: No prior exams available for comparison. No external comparison. DOSE: 8.7 mCi Tc 99m Myoview at rest 25.4 mCi [id number] at stress 0.4 mg Lexiscan STRESS SYMPTOMS: Shortness of breath. EJECTION FRACTION: 67 % TECHNIQUE: The patient underwent pharmacologic stress with infusion of prescribed dose. Continuous ECG tracing was monitored during stress. Gated SPECT imaging was performed after stress and conventi onal SPECT imaging was performed at rest. The examination was performed on a SPECT/CT scanner, both attenuation and non-corrected datasets were reviewed. FINDINGS: Distribution: The maximum perfused segment at stress is in the anterolateral wall. Perfusion Study: The pattern of perfusion at stress is within normal limits. Gated Study: There are intact wall motion and wall thickening without hypokinetic or dyskinetic segm ents. The ejection fraction is calculated at 67%. RISK CATEGORY: Low (<1% Annual Motality Rate) CONCLUSION: 1. No significant reversibility to suggest ischemia. Normal wall motion with ejection fraction 67%. Electronically signed by: Marbin Le MD 02/25/2018 3:52 PM EDT
--- NOTE | 2018-02-25 16:08 | HHI.DCPOC ---
Discharge Care Plan Diagnosis: (1) Atypical chest pain Goals to Promote Your Health * To prevent worsening of your condition and complications * To maintain your health at the optimal level Directions to Meet Your Goals Take your medications as prescribed Follow your dietary instruction Follow activity as directed Keep your appointments as scheduled Take your immunizations and boosters as scheduled If your symptoms worsen call your PCP, if no PCP go to Urgent Care Center or Emergency Room Smoking is Dangerous to Your Health. Avoid second hand smoke Call the 24-hour hour crisis hotline for domestic abuse at Shantelle Ramos Feb 25, 2018 16:08
[2018-02-26] MEDS ORDERED: ASPIRIN 325 MG TAB PO SCH (09:00)
== END 2018-02-25 17:04 | disposition home or self-care (01) ==
LOC: NEPE 06:13 → NEDA 08:02 → NEPFCDU 08:44
PROVIDERS: ADMIT Internal Medicine Interventional Cardiology; ATTEND Internal Medicine Interventional Cardiology
DX: R07.89 Other chest pain (principal); M79.1 Myalgia; R94.31 Abnormal electrocardiogram [ECG] [EKG]; E11.9 Type 2 diabetes mellitus without complications; K57.32 Diverticulitis of large intestine without perforation or abscess without bleeding; K21.9 Gastro-esophageal reflux disease without esophagitis; E78.5 Hyperlipidemia, unspecified; Z79.84 Long term (current) use of oral hypoglycemic drugs; Z86.73 Personal history of transient ischemic attack (TIA), and cerebral infarction without residual deficits; Z90.710 Acquired absence of both cervix and uterus
CPT/HCPCS: 71045; 71275; 78452; 80053; 82550; 83690; 83735; 84484; 85025; 85610; 85730; 93005; 93017; 99285; A9502; G0378; J2785; Q9967